=== PATIENT | female | born 1975 | race Caucasian/White ===

== ENCOUNTER 2016-08-08 15:53 | Emergency (ER) | payer MEDICAID | END 2016-08-08 16:52 | disposition left against medical advice (07) | LOC: UCEAST 15:53 | DX: O26.891 Other specified pregnancy related conditions, first trimester (principal); R05 Cough; Z53.21 Procedure and treatment not carried out due to patient leaving prior to being seen by health care provider ==

== ENCOUNTER 2016-12-28 16:36 | Emergency (ER) | payer OTHER ==
[2016-12-28 16:41] VITALS: BP 124/97
[2016-12-28] MEDS ORDERED: Ketorolac INJ* 60 MG/2 ML VIAL IM ONE (17:56)
[2016-12-28] MEDS ORDERED: Ketorolac INJ* 60 MG/2 ML VIAL ONE (17:59)
--- NOTE | 2016-12-29 01:33 | UC ---
Nargis Olsen Edward, scribed for Mikayla Dominguez MD on 12/28/16 at 1753 . Neck Pain HPI - HPI Summary HPI Summary: 41 y/o female presents to ED with neck and back pain. The neck pain is in the last started a week and a half ago and is rated at a 7 out of 10. The neck pain is characterized as a sharp, burning and aching pain that radiates into the head. The back pain started yesterday and is located in her lower L back. Patient states that the neck pain is aggravated when she turns her head to the right, and alleviated when she pushes into a nerve running down the back of her head. 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 Associated sx: PMHx substance abuse (heroin, but on Suboxone now). LNMP 11/29/16. Pt has also felt like her lef t ear is plugged and asks to have it checked. 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 Back pain - yesterday Mechanism Of Injury: No Known Trauma Timing: Constant Onset/Duration: Lasting Weeks Severity: Severe Pain Intensity: 7 Pain Scale Used: 0-10 Numeric Location: Discrete At: - left lower back, right post neck Character: Sharp, Burning Aggravating Factors: Movement - Turning head to the right Alleviating Factors: Message - massage Associated Signs & Symptoms: Positive: Negative - Allergies/Home Medications Allergies/Adverse Reactions: Allergies Allergy/AdvReac Type Severity Reaction Status Date / Time No Known Allergies Allergy Verified 12/28/16 16:40 PMH/Surg Hx/FS Hx/Imm Hx Previously Healthy: No Psychological History: Depression, Post Traumatic Stress Disorder, Other Other Psychological History: Substance abuse (heroin), on suboxone now Other History Of: Hepatitis C - She states that "it has been out of my system for a while." Negative For: HIV, Hepatitis B - Surgical History Surgical History: Yes Surgery Procedure, Year, and Place: C SECTION, LAPAROSCOPY FOR RUPTURED OVARIAN CYST - Family History Known Family History: Positive: Other - Cancer Negative: Renal Disease, Blood Disorder - Social History Alcohol Use: None Alcohol Amount: 1 drink last night Substance Use Type: Heroin - On suboxone now Substance Use Comment - Amount & 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) Smoking Status (MU): Smoker, Current Status Unknown Type: Cigarettes Amount Used/How Often: 1/2 ppd Length of Time of Smoking/Using Tobacco: 15 years Have You Smoked in the Last Year: Yes Household Exposure Type: Cigarettes - Immunization History Most Recent Influenza Vaccination: 2010 Most Recent Tetanus Shot: 2006 Most Recent Pneumonia Vaccination: never Review Of Systems Constitutional: Positive: Negative Skin: Positive: Negative Eyes: Positive: Negative ENT: Positive: Negative Respiratory: Positive: Negative Cardiovascular: Positive: Negative Gastrointestinal: Positive: Negative Genitourinary: Positive: Negative Musculoskeletal: Positive: Arthralgia - R neck and lower L back pain Neurological: Positive: Negative Psychological: Positive: Negative All Other Systems Reviewed And Are Negative: Yes Physical Exam Triage Information Reviewed: Yes Appearance: Well-Appearing, Well-Nourished, Pain Distress - Moderate Vital Signs: Initial Vital Signs Temp 97.3 F 12/28/16 16:40 Pulse 96 12/28/16 16:40 Resp 16 12/28/16 16:40 BP 124/97 12/28/16 16:40 Pulse Ox 95 12/28/16 16:40 Vital Signs Reviewed: Yes Eyes: Positive: Conjunctiva Clear ENT: Positive: Normal ENT inspection, Pharyngeal erythema, TM dull - fluid behind left TM Neck: Positive: Supple, No Lymphadenopathy, Tenderness @ - Right neck Respiratory: Positive: Lungs clear, Normal breath sounds, No respiratory distress Cardiovascular: Positive: RRR, No Murmur, Pulses Normal, Brisk Capillary Refill Abdomen Description: Positive: Nontender, Soft. Negative: Distended, Guarding, McBurney's Point Tenderness, Peritoneal Signs Bowel Sounds: Positive: Present Musculoskeletal: Positive: Strength Intact, ROM Intact, No Edema, Other: - L lumbar paraspinous muscle tenderness Neurological: Positive: Alert, Muscle Tone Normal Psychological Exam: Normal Skin Exam: Normal Neck Pain Course/Dx - Course Course Of Treatment: UA neg (+bilirubin). UCG neg. There is no trauma so no imaging necessary. Pt is on suboxone, so no narcotics. Accepts a shot of toradol with good relief. Will Rx flexeril as a muscle relaxant and advise pt to follow up with PCP, perhaps start physical therapy. Advised she may try mucinex or sudafed for her ear symptoms. - Differential Dx/Diagnosis Differential Dx/HQI/PQRI: Sprain, Strain, Other - Herniated disc, Renal Colic Provider Diagnoses: Lumbosacral strain, Cervical Strain, Elevated BP without hx of HTN, Serous Otitis, Tobacco abuse disorder Discharge - Discharge Plan Condition: Stable Disposition: HOME Prescriptions: Albuterol HFA INHALER* [Ventolin HFA Inhaler*] 2 puff INH Q4H PRN #1 mdi PRN Reason: Sob/Wheezing Cyclobenzaprine TAB* [Flexeril 10 MG TAB*] 10 mg PO TID PRN #20 tab PRN Reason: Pain Patient Education Materials: Cervical Strain (ED), Acute Low Back Pain (ED) Referrals: [facility] [Outside] - 12/30/16 (Call this number to get a primary care provider and have your blood pressure checked again, because it was elevated today, possibly due to your pain. ) The documentation as recorded by the Nargis alcantara Edward accurately reflects the service I personally performed and the decisions made by me, Mikayla Dominguez MD.
== END 2016-12-28 18:35 | disposition home or self-care (01) ==
LOC: UCEAST 16:36
DX: S39.012A Strain of muscle, fascia and tendon of lower back, initial encounter (principal); S16.1XXA Strain of muscle, fascia and tendon at neck level, initial encounter; X58.XXXA Exposure to other specified factors, initial encounter; Y93.9 Activity, unspecified; Y92.9 Unspecified place or not applicable; H65.92 Unspecified nonsuppurative otitis media, left ear; R03.0 Elevated blood-pressure reading, without diagnosis of hypertension; F32.9 Major depressive disorder, single episode, unspecified; Z32.02 Encounter for pregnancy test, result negative; Z72.0 Tobacco use
CPT/HCPCS: 81003; 84702; 96372; 99212; G0463; J1885

== ENCOUNTER 2017-02-17 20:11 | Emergency (ER) | payer OTHER ==
[2017-02-17] MEDS ORDERED: Ondansetron ODT TAB* 4 MG PO ONE (20:17)
[2017-02-17 20:23] VITALS: BP 112/68
--- NOTE | 2017-02-17 20:33 | UC ---
Abdominal Pain Female HPI - HPI Summary HPI Summary: 41 YEAR OLD FEMALE PRESENTS WITH SEVERE NAUSEA/VOMITING. I WILL SEND HER TO THE ER. - History of Current Complaint Chief Complaint: UCAbdominalPain Stated Complaint: ABD COMPLAINT,NAUSEA Time Seen by Provider: 02/17/17 20:16 Hx Last Menstrual Period: DECEMBER 2016 Allergies/Adverse Reactions: Allergies Allergy/AdvReac Type Severity Reaction Status Date / Time No Known Allergies Allergy Verified 02/17/17 20:23 Home Medications: Home Medications Escitalopram (NF) [Lexapro 20 mg (NF)] 20 mg PO DAILY 02/17/17 [History Confirmed 02/17/17] Ondansetron TAB* [Zofran 4 MG Tab*] 4 mg PO PRN 02/17/17 [History] PMH/Surg Hx/FS Hx/Imm Hx Previously Healthy: Yes Other History Of: Hepatitis C - She states that "it has been out of my system for a while." Negative For: HIV, Hepatitis B - Surgical History Surgical History: Yes Surgery Procedure, Year, and Place: C SECTION, LAPAROSCOPY FOR RUPTURED OVARIAN CYST - Family History Known Family History: Positive: None - N/C, Other - Cancer Negative: Renal Disease, Blood Disorder - Social History Alcohol Use: None Alcohol Amount: 1 drink last night Substance Use Type: Heroin, Marijuana Substance Use Comment - Amount & 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) Smoking Status (MU): Former Smoker Type: Cigarettes Amount Used/How Often: 1/2 ppd Length of Time of Smoking/Using Tobacco: 15 years Have You Smoked in the Last Year: Yes Household Exposure Type: Cigarettes - Immunization History Most Recent Influenza Vaccination: 2010 Most Recent Tetanus Shot: 2006 Most Recent Pneumonia Vaccination: never Review of Systems Constitutional: Negative Skin: Negative Eyes: Negative ENT: Negative Respiratory: Negative Cardiovascular: Negative Gastrointestinal: Abdominal Pain, Vomiting, Nausea Genitourinary: Negative Motor: Negative Neurovascular: Negative Musculoskeletal: Negative Neurological: Negative Psychological: Negative All Other Systems Reviewed And Are Negative: Yes Physical Exam Triage Information Reviewed: Yes Vital Signs: Initial Vital Signs Temp 36.7 C 02/17/17 20:14 Pulse 72 02/17/17 20:14 Resp 20 02/17/17 20:14 BP 112/68 02/17/17 20:14 Pulse Ox 94 02/17/17 20:14 Eye Exam: Normal ENT Exam: Normal Dental Exam: Normal Neck exam: Normal Neck: Positive: 1 Respiratory Exam: Normal Cardiovascular Exam: Normal Abdomen Description: Positive: Distended Musculoskeletal Exam: Normal Neurological Exam: Normal Psychological Exam: Normal Skin Exam: Normal Abd Pain Female Course/Dx - Differential Dx/Diagnosis Provider Diagnoses: SEVERE NAUSEA. SEVERE VOMITTING. SEVERE ABDOMINAL PAIN Discharge - Discharge Plan Condition: Critical Disposition: TRANS HIGHER LVL OF CARE FAC
== END 2017-02-17 20:35 | disposition short-term general hospital (02) ==
LOC: UCEAST 20:11
DX: O21.9 Vomiting of pregnancy, unspecified (principal); Z3A.00 Weeks of gestation of pregnancy not specified
CPT/HCPCS: 99213; A9270-GY; G0463

== ENCOUNTER 2017-02-17 20:49 | Emergency (ER) | payer OTHER ==
[2017-02-17] MEDS ORDERED: NS 0.9% 1000 ML* 2,000 ML IV ONE (21:29)
[2017-02-17] MEDS ORDERED: Ondansetron INJ* 2 MG/ML VIAL IV ONE (21:29)
[2017-02-17 21:44] LABS: Hematocrit 40 % (35-47); Hemoglobin 13.5 g/dl (12.0-16.0); Mean Corpuscular HGB Conc 34 g/dl (31-36); Mean Corpuscular Hemoglobin 31 pg (27-31); Mean Corpuscular Volume 92 fL (80-97); Mean Platelet Volume 8 um3 (7.4-10.4); Red Blood Count 4.37 10^6/ul (4.0-5.4); Red Cell Distribution Width 13 % (10.5-15); White Blood Count 13.3 10^3/ul (3.5-10.8)
--- NOTE | 2017-02-17 21:47 | ED ---
Nargis Olsen Edward, scribed for Tarik Brooks MD on 02/17/17 at 2130 . Abdominal Pain/Female - HPI Summary HPI Summary: 41 y/o female BIBA c/o ABD pain and gradual onset, constant N/V for days. ABD pain rated 8/10 in severity at triage. The pt states she finally vomited this morning. She states she is 1 month or two . LNMP December 2017. PMHx anxiety. - History of Current Complaint Chief Complaint: EDAbdPain Stated Complaint: ABD PAIN/SENT FROM [facility] Time Seen by Provider: 02/17/17 21:25 Hx Obtained From: Patient Hx Last Menstrual Period: DECEMBER 2016 Onset/Duration: Gradual Onset, Lasting Days, Still Present Timing: Constant Severity Currently: Severe Pain Intensity: 8 Pain Scale Used: 0-10 Numeric Associated Signs and Symptoms: Positive: Nausea, Vomiting Allergies/Adverse Reactions: Allergies Allergy/AdvReac Type Severity Reaction Status Date / Time [place] Allergy Unknown Unknown Verified 02/17/17 20:45 Reaction Details Penicillins Allergy Unknown Unknown Verified 02/17/17 20:45 Reaction Details Ziprasidone [From Geodon] Allergy Unknown Unknown Verified 02/17/17 20:45 Reaction Details PMH/Surg Hx/FS Hx/Imm Hx Previously Healthy: No Endocrine/Hematology History: Denies: Hx Diabetes, Hx Systemic Lupus Erythematosus, Hx Thyroid Disease Cardiovascular History: Denies: Hx Congestive Heart Failure, Hx Deep Vein Thrombosis, Hx Hypertension , Hx Myocardial Infarction, Hx Pacemaker/ICD Respiratory History: Reports: Hx Asthma, Hx Chronic Obstructive Pulmonary Disease (COPD) Denies: Hx Lung Cancer, Hx Pneumonia, Hx Pulmonary Embolism GI History: Denies: Hx Gall Bladder Disease, Hx Gastrointestinal Bleed, Hx Ulcer, Hx Urosepsis History: Denies: Hx Kidney Stones, Hx Renal Disease Musculoskeletal History: Reports: Hx Back Problems, Hx Scoliosis Sensory History: Reports: Hx Contacts or Glasses Opthamlomology History: Reports: Hx Contacts or Glasses Neurological History: Denies: Hx Dementia, Hx Migraine, Hx Seizures, Hx Transient Ischemic Attacks (TIA), Other Neuro Impairments/Disorders Psychiatric History: Reports: Hx Anxiety, Hx Depression, Hx Panic Disorder, Hx Post Traumatic Stress Disorder, Hx Substance Abuse Denies: Hx Schizophrenia, Hx Bipolar Disorder, Hx Suicide Attempt, Hx of Violent Episodes Against Others - Cancer History Hx Chemotherapy: No - Surgical History Surgery Procedure, Year, and Place: C SECTION, LAPAROSCOPY FOR RUPTURED OVARIAN CYST Infectious Disease History: Yes Infectious Disease History: Reports: Hx Hepatitis - Hepatitis C (STATES TREATED) Denies: Hx Clostridium Difficile, Hx Human Immunodeficiency Virus (HIV), Hx of Known/Suspected MRSA, Hx Shingles, Hx Tuberculosis, Hx Known/Suspected VRE, Hx Known/Suspected VRSA, History Other Infectious Disease, Traveled Outside the [place] in Last 30 Days - Family History Known Family History: Positive: Other - Cancer Negative: Renal Disease, Blood Disorder - Social History Alcohol Use: None Alcohol Amount: 1 drink last night Hx Substance Use: Yes - Pt on suboxone now Substance Use Type: Reports: Heroin, Marijuana Substance Use Comment - Amount & 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) Hx Tobacco Use: Yes Smoking Status (MU): Current Every Day Smoker Type: Cigarettes Amount Used/How Often: 1/2 ppd Length of Time of Smoking/Using Tobacco: 15 years Have You Smoked in the Last Year: Yes Review of Systems Constitutional: Negative Eyes: Negative ENT: Negative Cardiovascular: Negative Respiratory: Negative Positive: Abdominal Pain, Vomiting, Nausea Genitourinary: Negative Musculoskeletal: Negative Skin: Negative Neurological: Negative Psychological: Normal All Other Systems Reviewed And Are Negative: Yes Physical Exam Triage Information Reviewed: Yes Vital Signs On Initial Exam: Initial Vitals Temp Pulse Resp BP Pulse Ox 99.5 F 72 20 112/66 99 02/17/17 21:16 02/17/17 21:16 02/17/17 21:16 02/17/17 21:16 02/17/17 21:16 Vital Signs Reviewed: Yes Appearance: Positive: Well-Appearing, No Pain Distress Skin: Positive: Warm Head/Face: Positive: Normal Head/Face Inspection Eyes: Positive: MAICOL ENT: Positive: Normal ENT inspection Neck: Positive: Supple Respiratory/Lung Sounds: Positive: Clear to Auscultation, Breath Sounds Present Cardiovascular: Positive: RRR Abdomen Description: Positive: Nontender, Soft Bowel Sounds: Positive: Present Musculoskeletal: Positive: Strength/ROM Intact Neurological: Positive: Alert, Oriented to Person Place, Time - [place] Coma Scale Coma Scale Total: 15 Diagnostics - Vital Signs Vital Signs Temp Pulse Resp BP Pulse Ox 02/17/17 21:20 78 112/66 99 02/17/17 21:19 76 100 02/17/17 21:16 99.5 F 72 20 112/66 99 - Laboratory Result Diagrams: 02/17/17 21:30 02/17/17 21:30 Lab Statement: Any lab studies that have been ordered have been reviewed, and results considered in the medical decision making process. Re-Evaluation - Re-Evaluation First Eval Comment: pt comfortably sleeping, tolerating po Abdominal Pain Fem Course/Dx - Course Course Of Treatment: 41 y/o female BIBA c/o ABD pain and gradual onset, constant N/V for days. ABD pain rated 8/10 in severity at triage. The pt states she finally vomited this morning. She states she is 1 month or two . LNMP December 2017. PMHx anxiety. Pt will be d/c home. - Diagnoses Provider Diagnoses: Hyperemesis gravidarum Discharge - Discharge Plan Condition: Stable Disposition: HOME Prescriptions: Ondansetron ODT TAB* [Zofran 4 MG Odt TAB*] 4 mg PO Q6H #10 tab.odt Ondansetron TAB* [Zofran 4 MG Tab*] 4 mg PO Q6H PRN #10 PRN Reason: N/V Patient Education Materials: Hyperemesis Gravidarum (ED) Referrals: [facility] [place] [facility] [Outside] - 3 Days (Please f/u in 2-3 days) The documentation as recorded by the Nargis alcantara Edward accurately reflects the service I personally performed and the decisions made by , Tarik Brooks MD.
[2017-02-17 21:58] LABS: Albumin 4.4 g/dL (3.2-5.2); C Reactive Protein 1.09 mg/L (< 5.00); Calcium 9.5 mg/dL (8.6-10.3); EGFR African American 119.8 (>60); EGFR Non-African American 93.2 (>60); Globulin 2.6 g/dL (2-4); Magnesium 1.7 mg/dL (1.9-2.7); Potassium 3.6 mmol/L (3.5-5.0); Total Bilirubin 0.6 mg/dL (0.2-1.0)
[2017-02-17] MEDS ORDERED: Ondansetron ODT TAB* 4 MG PO ONE (23:00)
[2017-02-17 23:39] VITALS: BP 73/57
== END 2017-02-18 00:01 | disposition home or self-care (01) ==
LOC: ED 20:49
DX: O21.0 Mild hyperemesis gravidarum (principal); R10.9 Unspecified abdominal pain; Z3A.00 Weeks of gestation of pregnancy not specified; F17.210 Nicotine dependence, cigarettes, uncomplicated
CPT/HCPCS: 36415; 80053; 83605; 83690; 83735; 84702; 85025; 86140; 96374; 99283; A9270-GY; J2405

== ENCOUNTER 2017-02-20 08:25 | Emergency (ER) | payer OTHER ==
[2017-02-20] MEDS ORDERED: Ondansetron INJ* 2 MG/ML VIAL IV ONE ×2 (08:50→11:46)
[2017-02-20] MEDS ORDERED: NS 0.9% 1000 ML* 2,000 ML IV ONE (08:50)
[2017-02-20] MEDS ORDERED: Famotidine IV* 10 MG/ML 2 ML (20 mg) IV SLOW PU ONE (08:51)
[2017-02-20 09:00] LABS: Hematocrit 42 % (35-47); Mean Corpuscular HGB Conc 34 g/dl (31-36); Mean Corpuscular Hemoglobin 31 pg (27-31); Mean Corpuscular Volume 91 fL (80-97); Mean Platelet Volume 8 um3 (7.4-10.4); Red Blood Count 4.57 10^6/ul (4.0-5.4); Red Cell Distribution Width 13 % (10.5-15); White Blood Count 10.9 10^3/ul (3.5-10.8)
[2017-02-20 09:20] LABS: Albumin 4.2 g/dL (3.2-5.2); BUN/Creatinine Ratio 20.9 (8-20); Calcium 9.2 mg/dL (8.6-10.3); Globulin 2.7 g/dL (2-4); Potassium 3.7 mmol/L (3.5-5.0); Total Bilirubin 0.5 mg/dL (0.2-1.0); Total Protein 6.9 g/dL (6.4-8.9)
[2017-02-20 10:32] LABS: Urine Bilirubin Negative (Negative); Urine Glucose Negative (Negative); Urine Nitrite Negative (Negative)
[2017-02-20] MEDS ORDERED: NS 0.9% 1000 ML* 1,000 ML IV ONE (11:46)
[2017-02-20 12:13] VITALS: BP 109/72
[2017-02-20 12:14] LABS: Benzodiazepine Urine Screen None Detected (None Detect)
[2017-02-20] MEDS ORDERED: PROCHLORPERAZINE INJ 5 MG/ML 2 ML VIAL IV ONE (12:46)
[2017-02-20] MEDS ORDERED: Pyridoxine TAB* 50 MG PO ONE (12:57)
--- NOTE | 2017-02-21 17:29 | ED ---
Kwame Olsen Thomas, scribed for Valeriy Shafer MD on 02/20/17 at 0833 . GI/ HPI - HPI Summary HPI Summary: The pt is a 41 y/o F who is 6 weeks presenting to the ED c/o vomiting that began three days ago. She cannot hold down even water. She rates her pain level 2/10. The vomiting is aggravated and alleviated by nothing. 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 Pt additionally c/o nausea Pt denies abdominal cramping, vaginal bleeding, and vaginal discharge. PMHx: Hepatitis C, depression, anxiety, suboxone therapy, COPD. PSHx: , ruptured ovarian cyst. SHx: last reported illicit drug use in 2011, smoker, no alcohol use. She was a patient here three days ago with similar complaints and was seen by Dr. Brooks. She reports a generally unpleasant experience. She says that she was discharged home, apparently against her wishes. [facility] . She has not yet seen an OBGYN for this . She reports a miscarriage that occurred earlier this year. G=8, P=5, A=2. - History of Current Complaint Stated Complaint: VOMITING Hx Obtained From: Patient Hx Last Menstrual Period: DECEMBER 2016 Onset/Duration: Started Days Ago - 3, Still Present Timing: Constant Pain Intensity: 2 Associated Signs and Symptoms: Positive: Nausea, Vomiting. Negative: Other: - NEG: abd cramping Additional Signs & Symptoms: Negative: Vaginal Bleeding, Vaginal Discharge Aggravating Factor(s): Nothing Alleviating Factor(s): Nothing - Additional Pertinent History Primary Care Physician: Amy - Allergy/Home Medications Allergies/Adverse Reactions: Allergies Allergy/AdvReac Type Severity Reaction Status Date / Time [facility] Allergy Unknown Unknown Verified 02/20/17 08:27 Reaction Details Penicillins Allergy Unknown Unknown Verified 02/20/17 08:27 Reaction Details Ziprasidone [From Geodon] Allergy Unknown Unknown Verified 02/20/17 08:27 Reaction Details PMH/Surg Hx/FS Hx/Imm Hx Previously Healthy: No Endocrine/Hematology History: Denies: Hx Diabetes, Hx Systemic Lupus Erythematosus, Hx Thyroid Disease Cardiovascular History: Denies: Hx Congestive Heart Failure, Hx Deep Vein Thrombosis, Hx Hypertension , Hx Myocardial Infarction, Hx Pacemaker/ICD Respiratory History: Reports: Hx Asthma, Hx Chronic Obstructive Pulmonary Disease (COPD) Denies: Hx Lung Cancer, Hx Pneumonia, Hx Pulmonary Embolism GI History: Denies: Hx Gall Bladder Disease, Hx Gastrointestinal Bleed, Hx Ulcer, Hx Urosepsis History: Denies: Hx Kidney Stones, Hx Renal Disease Musculoskeletal History: Reports: Hx Back Problems, Hx Scoliosis Sensory History: Reports: Hx Contacts or Glasses Opthamlomology History: Reports: Hx Contacts or Glasses Neurological History: Denies: Hx Dementia, Hx Migraine, Hx Seizures, Hx Transient Ischemic Attacks (TIA), Other Neuro Impairments/Disorders Psychiatric History: Reports: Hx Anxiety, Hx Depression, Hx Panic Disorder, Hx Post Traumatic Stress Disorder, Hx Substance Abuse Denies: Hx Schizophrenia, Hx Bipolar Disorder, Hx Suicide Attempt, Hx of Violent Episodes Against Others - Cancer History Hx Chemotherapy: No - Surgical History Surgery Procedure, Year, and Place: C SECTION, LAPAROSCOPY FOR RUPTURED OVARIAN CYST Infectious Disease History: Reports: Hx Hepatitis - Hepatitis C (STATES TREATED) Denies: Hx Clostridium Difficile, Hx Human Immunodeficiency Virus (HIV), Hx of Known/Suspected MRSA, Hx Shingles, Hx Tuberculosis, Hx Known/Suspected VRE, Hx Known/Suspected VRSA, History Other Infectious Disease, Traveled Outside the [place] in Last 30 Days - Family History Known Family History: Positive: Other - Cancer Negative: Renal Disease, Blood Disorder - Social History Alcohol Use: None Alcohol Amount: 1 drink last night Hx Substance Use: Yes - Pt on suboxone now Substance Use Type: Reports: Heroin, Marijuana Substance Use Comment - Amount & 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 Negative: Other - NEG: abdominal cramping Negative: discharge, other - NEG: vaginal bleeding All Other Systems Reviewed And Are Negative: Yes Physical Exam - Summary Physical Exam Summary: VITAL SIGNS: Reviewed. GENERAL: ~Patient is a well-developed and nourished female who is lying comfortable in the stretcher. ~Patient is not in any acute respiratory distress. HEAD AND FACE: No signs of trauma. ~No ecchymosis, hematomas or skull depressions. No sinus tenderness. EYES: PERRLA, EOMI x 2, No injected conjunctiva, no nystagmus. EARS: Hearing grossly intact. Ear canals and tympanic membranes are within normal limits. MOUTH: Oropharynx within normal limits. NECK: Supple, trachea is midline, no adenopathy, no JVD, no carotid bruit, no c- spine tenderness, neck with full ROM. CHEST: Symmetric, no tenderness at palpation LUNGS: Clear to auscultation bilaterally. No wheezing or crackles. CVS: Regular rate and rhythm, S1 and S2 present, no murmurs or gallops appreciated. ABDOMEN: Soft, non-tender. No signs of distention. No rebound no guarding, and no masses palpated. Bowel sounds are normal. EXTREMITIES: FROM in all major joints, no edema, no cyanosis or clubbing. NEURO: Alert and oriented x 3. No acute neurological deficits. Speech is normal and follows commands. SKIN: Dry and warm Triage Information Reviewed: Yes Vital Signs On Initial Exam: Initial Vitals Temp Pulse Resp BP Pulse Ox 97.7 F 48 20 131/93 95 02/20/17 08:27 02/20/17 08:27 02/20/17 08:27 02/20/17 08:27 02/20/17 08:27 Vital Signs Reviewed: Yes Diagnostics - Vital Signs Vital Signs Temp Pulse Resp BP Pulse Ox 02/20/17 08:27 97.7 F 48 20 131/93 95 - Laboratory Lab Results: Lab Results 02/20/17 02/20/17 02/20/17 Range/Units 08:45 08:45 09:50 WBC 10.9 H (3.5-10.8) 10^3/ul RBC 4.57 (4.0-5.4) 10^6/ul Hgb 14.0 (12.0-16.0) g/dl Hct 42 (35-47) % MCV 91 (80-97) fL MCH 31 (27-31) pg MCHC 34 (31-36) g/dl RDW 13 (10.5-15) % Plt Count 238 (150-450) 10^3/ul MPV 8 (7.4-10.4) um3 Neut % (Auto) 67.9 (38-83) % Lymph % (Auto) 20.8 L (25-47) % Clare % (Auto) 9.9 H (1-9) % Eos % (Auto) 0.5 (0-6) % Baso % (Auto) 0.9 (0-2) % Absolute Neuts (auto) 7.4 (1.5-7.7) 10^3/ul Absolute Lymphs (auto) 2.3 (1.0-4.8) 10^3/ul Absolute Monos (auto) 1.1 H (0-0.8) 10^3/ul Absolute Eos (auto) 0.1 (0-0.6) 10^3/ul Absolute Basos (auto) 0.1 (0-0.2) 10^3/ul Absolute Nucleated RBC 0.01 10^3/ul Nucleated RBC % 0.1 Sodium 132 L (133-145) mmol/L Potassium 3.7 (3.5-5.0) mmol/L Chloride 102 (101-111) mmol/L Carbon Dioxide 23 (22-32) mmol/L Anion Gap 7 (2-11) mmol/L BUN 14 (6-24) mg/dL Creatinine 0.67 (0.51-0.95) mg/dL Est GFR ( Amer) 126.0 (>60) Est GFR (Non-Af Amer) 98.0 (>60) BUN/Creatinine Ratio 20.9 H (8-20) Glucose 108 H (70-100) mg/dL Calcium 9.2 (8.6-10.3) mg/dL Total Bilirubin 0.50 (0.2-1.0) mg/dL AST 16 (13-39) U/L ALT 10 (7-52) U/L Alkaline Phosphatase 28 L (34-104) U/L Total Protein 6.9 (6.4-8.9) g/dL Albumin 4.2 (3.2-5.2) g/dL Globulin 2.7 (2-4) g/dL Albumin/Globulin Ratio 1.6 (1-3) Beta HCG, Quant 142258.00 mIU/mL Urine Color Yellow Urine Appearance Clear Urine pH 7.0 (5-9) Ur Specific [place] 1.005 L (1.010-1.030) Urine Protein Negative (Negative) Urine Ketones 1+ H (Negative) Urine Blood Negative (Negative) Urine Nitrate Negative (Negative) Urine Bilirubin Negative (Negative) Urine Urobilinogen Negative (Negative) Ur Leukocyte Esterase Negative (Negative) Urine Glucose Negative (Negative) Urine Opiates Screen (None Detect) Ur Barbiturates Screen (None Detect) Ur Phencyclidine Scrn (None Detect) Ur Amphetamines Screen (None Detect) U Benzodiazepines Scrn (None Detect) Urine Cocaine Screen (None Detect) U Cannabinoids Screen (None Detect) 02/20/17 Range/Units 11:48 WBC (3.5-10.8) 10^3/ul RBC (4.0-5.4) 10^6/ul Hgb (12.0-16.0) g/dl Hct (35-47) % MCV (80-97) fL MCH (27-31) pg MCHC (31-36) g/dl RDW (10.5-15) % Plt Count (150-450) 10^3/ul MPV (7.4-10.4) um3 Neut % (Auto) (38-83) % Lymph % (Auto) (25-47) % Clare % (Auto) (1-9) % Eos % (Auto) (0-6) % Baso % (Auto) (0-2) % Absolute Neuts (auto) (1.5-7.7) 10^3/ul Absolute Lymphs (auto) (1.0-4.8) 10^3/ul Absolute Monos (auto) (0-0.8) 10^3/ul Absolute Eos (auto) (0-0.6) 10^3/ul Absolute Basos (auto) (0-0.2) 10^3/ul Absolute Nucleated RBC 10^3/ul Nucleated RBC % Sodium (133-145) mmol/L Potassium (3.5-5.0) mmol/L Chloride (101-111) mmol/L Carbon Dioxide (22-32) mmol/L Anion Gap (2-11) mmol/L BUN (6-24) mg/dL Creatinine (0.51-0.95) mg/dL Est GFR ( Amer) (>60) Est GFR (Non-Af Amer) (>60) BUN/Creatinine Ratio (8-20) Glucose (70-100) mg/dL Calcium (8.6-10.3) mg/dL Total Bilirubin (0.2-1.0) mg/dL AST (13-39) U/L ALT (7-52) U/L Alkaline Phosphatase (34-104) U/L Total Protein (6.4-8.9) g/dL Albumin (3.2-5.2) g/dL Globulin (2-4) g/dL Albumin/Globulin Ratio (1-3) Beta HCG, Quant mIU/mL Urine Color Urine Appearance Urine pH (5-9) Ur Specific [place] (1.010-1.030) Urine Protein (Negative) Urine Ketones (Negative) Urine Blood (Negative) Urine Nitrate (Negative) Urine Bilirubin (Negative) Urine Urobilinogen (Negative) Ur Leukocyte Esterase (Negative) Urine Glucose (Negative) Urine Opiates Screen None detected (None Detect) Ur Barbiturates Screen None detected (None Detect) Ur Phencyclidine Scrn None detected (None Detect) Ur Amphetamines Screen None detected (None Detect) U Benzodiazepines Scrn None detected (None Detect) Urine Cocaine Screen None detected (None Detect) U Cannabinoids Screen Presumptive positive H (None Detect) Result Diagrams: 02/20/17 08:45 02/20/17 08:45 Lab Statement: Any lab studies that have been ordered have been reviewed, and results considered in the medical decision making process. Re-Evaluation - Re-Evaluation First Eval Re-Evaluation Time: 12:46 Change: Unchanged Comment: The patient is still vomiting. GIGU Course/Dx - Course Assessment/Plan: The pt is a 41 y/o F who is 6 weeks presenting to the ED c/o vomiting that began three days ago. She cannot hold down even water. She rates her pain level 2/10. The vomiting is aggravated and alleviated by nothing. 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 Pt additionally c/o nausea. Pt denies abdominal cramping, vaginal bleeding, and vaginal discharge. PMHx: Hepatitis C, depression, anxiety, suboxone therapy, COPD. PSHx : , ruptured ovarian cyst. SHx: last reported illicit drug use in 2011 , smoker, no alcohol use. She was a patient here three days ago with similar complaints and was seen by Dr. Brooks. She reports a generally unpleasant experience. She says that she was discharged home, apparently against her wishes. [facility] 12/31/16. She has not yet seen an OBGYN for this . She reports a miscarriage that occurred earlier this year. G=8, P=5, A=2. Test results are without significant abnormality except WBC 10.9, sodium 132, beta HCG 768123. UA is negative for UTI. Urine toxicology is positive for cannabinoids. In the ED course, the patient was given IV fluids, Zofran x2, and Compazine. The patient was also given Vitamin B6. The symptoms of nausea and vomiting have improved. The patient still has some epigastric burning, therefore the patient was given Pepcid. As a result, her symptoms improved. I discussed the case with Dr. Samuels, OBGYN, who recommends that patient will be given medications for Compazine and Vitamin B6. I also advised the patient and her at length to cease their marijuana use. The patient will follow up with Dr. Samuels. She is alert and oriented x3 and is hemodynamically stable. She is able to tolerate PO intake without nausea and vomiting. I discussed all the findings and test results with the patient. Patient was instructed to return to the emergency room immediately if any of the symptoms return or worsens. Plan of care was discussed with the patient and understands and agrees. All questions were answered at patient satisfaction. There were no further complaints or concerns. - Diagnoses Provider Diagnoses: Nausea and vomiting during - Physician Notifications Discussed Care Of Patient With: Kaylyn Samuels Time Discussed With Above Provider: 12:49 Instructed by Provider To: Other - We discussed patient care. She recommends to discharge the patient on Compusyn and Vitamin B6. Discharge - Discharge Plan Condition: Stable Disposition: HOME Prescriptions: Pantoprazole TAB (NF) [Protonix TAB (NF)] 40 mg PO DAILY #30 tab Prochlorperazine TAB* [Compazine Tab*] 10 mg PO Q6H PRN #12 tab PRN Reason: Vomiting Pyridoxine TAB* [Vitamin B6 TAB*] 25 mg PO TID PRN #20 tab PRN Reason: Vomiting Patient Education Materials: Nausea and Vomiting in (ED) Referrals: Kaylyn Samuels MD [Medical Doctor] - 2 Days No Primary Care Phys,NOPCP [Primary Care Provider] - The documentation as recorded by the Kwame alcantara Thomas accurately reflects the service I personally performed and the decisions made by Hollis dyson Walter, MD.
== END 2017-02-20 13:28 | disposition home or self-care (01) ==
LOC: ED 08:25
DX: O21.0 Mild hyperemesis gravidarum (principal); Z3A.01 Less than 8 weeks gestation of pregnancy; Z88.0 Allergy status to penicillin; J44.9 Chronic obstructive pulmonary disease, unspecified; F41.9 Anxiety disorder, unspecified; F32.9 Major depressive disorder, single episode, unspecified; F43.10 Post-traumatic stress disorder, unspecified; F17.210 Nicotine dependence, cigarettes, uncomplicated
CPT/HCPCS: 36415; 80053; 80307; 81003; 84702; 85025; 96361; 96374; 96375; 96376; 99283; A9270-GY; J2405

== ENCOUNTER 2017-02-25 15:40 | Emergency (ER) | payer OTHER ==
[2017-02-25] MEDS ORDERED: PROCHLORPERAZINE INJ 5 MG/ML 2 ML VIAL IM ONE (16:24)
--- NOTE | 2017-02-25 16:33 | ED ---
Francine Olsen Rebecca, scribed for Kirk Garcia MD on 02/25/17 at 1617 . - HPI Summary HPI Summary: Pt is a 41 y/o F who presents to ED c/o N/V. Sx began tonight after running out of her Compazine Rx. Partner reports that she can only go 10 minutes without vomiting. Sx only alleviated by Compazine. Additionally c/o fever, chills and constipation. Denies dysuria. Pt is 8 weeks . Pt has been seen 3 times in the last 8 days for simliar sx, per partner, with the last time being 02/20. 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 - History of Current Complaint Chief Complaint: EDNauseaVomitDiarrh Stated Complaint: N/V Hx Obtained From: Patient, Family/Truck Caterer - Partner Onset/Duration: Still Present Current Severity: None Pain Intensity: 0 Location of Pain: None Aggravating Factors: Nothing Alleviating Factors: Medication - Compazine Associated Signs and Symptoms: Positive: Fever, Nausea, Vomiting. Negative: Urinary Symptoms - Assessment Hx Now: No Hx Hysterectomy: No - Additional Pertinent History Primary Care Physician: Amy - Allergies/Home Medications Allergies/Adverse Reactions: Allergies Allergy/AdvReac Type Severity Reaction Status Date / Time [facility] Allergy Unknown Unknown Verified 02/20/17 08:27 Reaction Details Penicillins Allergy Unknown Unknown Verified 02/20/17 08:27 Reaction Details Ziprasidone [From Geodon] Allergy Unknown Unknown Verified 02/20/17 08:27 Reaction Details PMH/Surg Hx/FS Hx/Imm Hx Endocrine/Hematology History: Denies: Hx Diabetes, Hx Systemic Lupus Erythematosus, Hx Thyroid Disease Cardiovascular History: Denies: Hx Congestive Heart Failure, Hx Deep Vein Thrombosis, Hx Hypertension , Hx Myocardial Infarction, Hx Pacemaker/ICD Respiratory History: Reports: Hx Asthma, Hx Chronic Obstructive Pulmonary Disease (COPD) Denies: Hx Lung Cancer, Hx Pneumonia, Hx Pulmonary Embolism GI History: Denies: Hx Gall Bladder Disease, Hx Gastrointestinal Bleed, Hx Ulcer, Hx Urosepsis History: Denies: Hx Kidney Stones, Hx Renal Disease Musculoskeletal History: Reports: Hx Back Problems, Hx Scoliosis Sensory History: Reports: Hx Contacts or Glasses Opthamlomology History: Reports: Hx Contacts or Glasses Neurological History: Denies: Hx Dementia, Hx Migraine, Hx Seizures, Hx Transient Ischemic Attacks (TIA), Other Neuro Impairments/Disorders Psychiatric History: Reports: Hx Anxiety, Hx Depression, Hx Panic Disorder, Hx Post Traumatic Stress Disorder, Hx Substance Abuse Denies: Hx Schizophrenia, Hx Bipolar Disorder, Hx Suicide Attempt, Hx of Violent Episodes Against Others - Cancer History Hx Chemotherapy: No - Surgical History Surgery Procedure, Year, and Place: C SECTION, LAPAROSCOPY FOR RUPTURED OVARIAN CYST Infectious Disease History: Yes Infectious Disease History: Reports: Hx Hepatitis - Hepatitis C (STATES TREATED) Denies: Hx Clostridium Difficile, Hx Human Immunodeficiency Virus (HIV), Hx of Known/Suspected MRSA, Hx Shingles, Hx Tuberculosis, Hx Known/Suspected VRE, Hx Known/Suspected VRSA, History Other Infectious Disease, Traveled Outside the [place] in Last 30 Days - Family History Known Family History: Positive: Other - Cancer Negative: Renal Disease, Blood Disorder - Social History Alcohol Use: None Alcohol Amount: 1 drink last night Hx Substance Use: Yes - Pt on suboxone now Substance Use Type: Reports: Heroin, Marijuana Substance Use Comment - Amount & 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) Hx Tobacco Use: Yes Smoking Status (MU): Current Every Day Smoker Type: Cigarettes Amount Used/How Often: 1/2 ppd Length of Time of Smoking/Using Tobacco: 15 years Have You Smoked in the Last Year: Yes Review of Systems Positive: Fever, Chills Positive: Vomiting, Nausea, Other - Constipation Negative: dysuria All Other Systems Reviewed And Are Negative: Yes Physical Exam - Summary Physical Exam Summary: General: Mildly ill appearing Skin: warm, color reflects adequate perfusion, dry Head: normal Eyes: EOMI, MACIOL ENT: normal Neck: supple, nontender Respiratory: CTA, breath sounds present Cardiovascular: RRR Abdomen: soft, nontender Bowel: present Musculoskeletal: normal, strength/ROM intact Neurological: normal, sensory/motor intact, A&O x3 Psychological: affect/mood appropriate - Physical Exam Triage Information Reviewed: Yes Diagnostics - Vital Signs Vital Signs Temp Pulse Resp BP Pulse Ox 02/25/17 16:06 97.4 F 81 18 120/75 100 02/25/17 16:01 97.4 F 81 18 120/75 100 - Laboratory Lab Statement: Any lab studies that have been ordered have been reviewed, and results considered in the medical decision making process. Course/Dx - Course Course Of Treatment: PATIENT DENIES SX OF UTI. SHE REQUEST COMPAZINE RX. SHE WILL F/U WITH OBGYN; RETURN IF WORSE. - Diagnoses Provider Diagnoses: Hyperemesis gravidarum Discharge - Discharge Plan Condition: Stable Disposition: HOME Prescriptions: Prochlorperazine TAB* [Compazine Tab*] 10 mg PO Q6H PRN #15 tab PRN Reason: Vomiting Patient Education Materials: Hyperemesis Gravidarum (ED) Referrals: No Primary Care Phys,NOPCP [Primary Care Provider] - Additional Instructions: FOLLOW UP WITH YOUR OBGYN. RETURN TO THE EMERGENCY DEPARTMENT FOR ANY WORSENING OF YOUR CONDITION; PAIN, FEVER, DEHYDRATION, YOU FEEL ILL OR QUESTIONS OR CONCERNS. The documentation as recorded by the Francine alcantara Rebecca accurately reflects the service I personally performed and the decisions made by me, Kirk Garcia MD.
[2017-02-25 16:56] VITALS: BP 118/76
== END 2017-02-25 16:55 | disposition home or self-care (01) ==
LOC: ED 15:40
DX: O21.0 Mild hyperemesis gravidarum (principal); Z3A.08 8 weeks gestation of pregnancy; R50.9 Fever, unspecified; K59.00 Constipation, unspecified
CPT/HCPCS: 96372; 99282; J0780

== ENCOUNTER 2017-02-27 06:44 | Observation (INO) | payer OTHER ==
[2017-02-27] MEDS ORDERED: NS 0.9% 1000 ML* 2,000 ML IV ONE (07:29)
[2017-02-27] MEDS ORDERED: PROCHLORPERAZINE INJ 5 MG/ML 2 ML VIAL IV ONE (07:32)
[2017-02-27 07:59] LABS: Hematocrit 40 % (35-47); Hemoglobin 13.4 g/dl (12.0-16.0); Mean Corpuscular HGB Conc 34 g/dl (31-36); Mean Corpuscular Hemoglobin 31 pg (27-31); Mean Corpuscular Volume 91 fL (80-97); Mean Platelet Volume 8 um3 (7.4-10.4); Red Blood Count 4.35 10^6/ul (4.0-5.4); Red Cell Distribution Width 13 % (10.5-15); White Blood Count 9.9 10^3/ul (3.5-10.8)
[2017-02-27 08:14] LABS: Albumin 4.5 g/dL (3.2-5.2); BUN/Creatinine Ratio 21.9 (8-20); EGFR African American 132.9 (>60); EGFR Non-African American 103.3 (>60); Globulin 2.4 g/dL (2-4); Potassium 3.4 mmol/L (3.5-5.0); Total Bilirubin 0.6 mg/dL (0.2-1.0); Total Protein 6.9 g/dL (6.4-8.9)
[2017-02-27 08:56] LABS: Urine Bilirubin Negative (Negative); Urine Glucose Negative (Negative); Urine Nitrite Negative (Negative)
[2017-02-27] MEDS ORDERED: Potassium Chlor TAB* 20 MEQ TAB.ER PO ONE (09:06)
[2017-02-27] MEDS ORDERED: diPHENhydraMINE IV* 50 MG/ML 1 ml VIAL (BENADRYL) IV ONE (09:08)
--- NOTE | 2017-02-27 09:58 | RAD ---
INDICATION: Possible early . Confirm intrauterine COMPARISON: None TECHNIQUE: Transabdominal imaging was performed FINDINGS: There is a single intrauterine gestation with yolk sac and cardiac activity. The heart rate is documented at 155 beats for minute. The crown-rump length corresponds to a 7 week 5 day gestation which is believed to be more accurate than the sac size measurement. There is a subchorionic bleed measuring 1.4 x 0.9 x 0.5 cm. The right ovary measures 2.7 x 2.7 x 2.8 cm on the left 2.7 x 1.6 x 1.9 cm. There is a 2.4 cm right ovarian cyst IMPRESSION: INTRAUTERINE GESTATION AT 7 WEEKS 5 DAYS BASED ON CROWN-RUMP LENGTH. CARDIAC ACTIVITY IS CONFIRMED. MODERATE-SIZED SUBCHORIONIC HEMORRHAGE. SUGGEST FOLLOW-UP
[2017-02-27] MEDS ORDERED: KCL 20 MEQ/100 ML IVPREMIX* 20 MEQ/100 ML BAG IV ONE (10:09)
[2017-02-27] MEDS ORDERED: diPHENhydraMINE IV* 50 MG in NS 0.9% 50 ML* 50 ML IVPB PRN (11:04)
--- NOTE | 2017-02-27 11:04 | ED ---
Nargis Olsen Edward, scribed for Valeriy Garcia MD on 02/27/17 at 0711 . Complex/Multi-Sys Presentation - HPI Summary HPI Summary: 41 y/o female presents to ED c/o N/V for the past three or four days. Associated sx: constipation and diarrhea. The pt reports being 8 weeks . PMHx anxiety and depression. Past medications reviewed on visit. SHx C -section (1997). No relevant FHx. NKDA. Pt lives in a longterm. - History Of Current Complaint Chief Complaint: EDNauseaVomitDiarrh Hx Obtained From: Patient Onset/Duration: Lasting Days Timing: Intermittent, Lasting: Associated Signs And Symptoms: Positive: Nausea, Vomiting, Diarrhea, Other - Constipation - Allergies/Home Medications Allergies/Adverse Reactions: Allergies Allergy/AdvReac Type Severity Reaction Status Date / Time [place] Allergy Unknown Unknown Verified 02/20/17 08:27 Reaction Details Penicillins Allergy Unknown Unknown Verified 02/20/17 08:27 Reaction Details Ziprasidone [From Geodon] Allergy Unknown Unknown Verified 02/20/17 08:27 Reaction Details PMH/Surg Hx/FS Hx/Imm Hx Previously Healthy: No Endocrine/Hematology History: Denies: Hx Diabetes, Hx Systemic Lupus Erythematosus, Hx Thyroid Disease Cardiovascular History: Denies: Hx Congestive Heart Failure, Hx Deep Vein Thrombosis, Hx Hypertension , Hx Myocardial Infarction, Hx Pacemaker/ICD Respiratory History: Reports: Hx Asthma, Hx Chronic Obstructive Pulmonary Disease (COPD) Denies: Hx Lung Cancer, Hx Pneumonia, Hx Pulmonary Embolism GI History: Denies: Hx Gall Bladder Disease, Hx Gastrointestinal Bleed, Hx Ulcer, Hx Urosepsis History: Denies: Hx Kidney Stones, Hx Renal Disease Musculoskeletal History: Reports: Hx Back Problems, Hx Scoliosis Sensory History: Reports: Hx Contacts or Glasses Opthamlomology History: Reports: Hx Contacts or Glasses Neurological History: Denies: Hx Dementia, Hx Migraine, Hx Seizures, Hx Transient Ischemic Attacks (TIA), Other Neuro Impairments/Disorders Psychiatric History: Reports: Hx Anxiety, Hx Depression, Hx Panic Disorder, Hx Post Traumatic Stress Disorder, Hx Substance Abuse Denies: Hx Schizophrenia, Hx Bipolar Disorder, Hx Suicide Attempt, Hx of Violent Episodes Against Others - Cancer History Hx Chemotherapy: No - Surgical History Surgery Procedure, Year, and Place: C SECTION, LAPAROSCOPY FOR RUPTURED OVARIAN CYST Infectious Disease History: Reports: Hx Hepatitis - Hepatitis C (STATES TREATED) Denies: Hx Clostridium Difficile, Hx Human Immunodeficiency Virus (HIV), Hx of Known/Suspected MRSA, Hx Shingles, Hx Tuberculosis, Hx Known/Suspected VRE, Hx Known/Suspected VRSA, History Other Infectious Disease, Traveled Outside the [place] in Last 30 Days - Family History Known Family History: Positive: Other - Cancer Negative: Renal Disease, Blood Disorder - Social History Occupation: Unemployed Lives: Long Term Alcohol Use: None Alcohol Amount: 1 drink last night Hx Substance Use: Yes - Pt on suboxone now Substance Use Type: Reports: Heroin, Marijuana Substance Use Comment - Amount & 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) Hx Tobacco Use: Yes Smoking Status (MU): Current Every Day Smoker Type: Cigarettes Amount Used/How Often: 1/2 ppd Length of Time of Smoking/Using Tobacco: 15 years Have You Smoked in the Last Year: Yes Review of Systems Constitutional: Negative Eyes: Negative ENT: Negative Cardiovascular: Negative Respiratory: Negative Positive: Vomiting, Diarrhea, Nausea, Other - Constipation Genitourinary: Negative Musculoskeletal: Negative Skin: Negative Neurological: Negative Psychological: Normal All Other Systems Reviewed And Are Negative: Yes Physical Exam Triage Information Reviewed: Yes Vital Signs On Initial Exam: Initial Vitals Temp Pulse Resp BP Pulse Ox 98.0 F 90 24 99/72 96 02/27/17 06:49 02/27/17 06:49 02/27/17 06:49 02/27/17 06:49 02/27/17 06:49 Vital Signs Reviewed: Yes Appearance: Positive: No Pain Distress Skin: Positive: Warm, Skin Color Reflects Adequate Perfusion Head/Face: Positive: Normal Head/Face Inspection ENT: Positive: Pharynx normal Neck: Positive: Supple. Negative: Nuchal Rigidity Respiratory/Lung Sounds: Positive: Clear to Auscultation, Breath Sounds Present Cardiovascular: Positive: RRR. Negative: Murmur Abdomen Description: Positive: Nontender Musculoskeletal: Positive: Strength/ROM Intact Neurological: Positive: Sensory/Motor Intact, Alert, Oriented to Person Place, Time, CN Intact II-III Psychiatric: Positive: Anxious Diagnostics - Vital Signs Vital Signs Temp Pulse Resp BP Pulse Ox 02/27/17 06:49 98.0 F 90 24 99/72 96 - Laboratory Result Diagrams: 02/27/17 07:49 02/27/17 07:49 Lab Statement: Any lab studies that have been ordered have been reviewed, and results considered in the medical decision making process. - Ultrasound No standard instances Ultrasound Interpretation: Positive (See Comments) - US - INTRAUTERINE GESTATION AT 7 WEEKS 5 DAYS BASED ON CROWN-RUMP LENGTH. CARDIAC ACTIVITY IS CONFIRMED. MODERATE-SIZED SUBCHORIONIC HEMORRHAGE. SUGGEST FOLLOW-UP Ultrasound Interpretation Completed By: Radiologist Re-Evaluation - Re-Evaluation 1 Re-Evaluation Time: 10:55 Complex Multi-Symp Course/Dx Course Of Treatment: 41 yr old on suboxone, and vomiting for a week with . Her k is low, sodium low. She is still vomiting despite meds, and some hydration. CDU to hospitalist service. - Diagnoses Provider Diagnoses: Hyperemesis, , Subchorionic bleed Discharge - Discharge Plan Condition: Good Disposition: ADMITTED TO [facility] The documentation as recorded by the Nargis alcantara Edward accurately reflects the service I personally performed and the decisions made by , Valeriy aGrcia MD.
[2017-02-27] MEDS: Metoclopramide IV* 5 MG/ML 2 ML VIAL IV SLOW PU PRN ×2 (11:37→19:30)
[2017-02-27] MEDS ORDERED: NS 0.9% w/ 40 Meq KCL 1000 ML* 1,000 ML IV SCH (12:00)
[2017-02-27] MEDS ORDERED: Albuterol HFA INHALER* 8 gm MDI INH PRN (12:22)
[2017-02-27] MEDS: Pyridoxine TAB* 50 MG PO SCH ×2 (13:28→19:41)
--- NOTE | 2017-02-27 15:21 | CONSULT ---
Consult Consult: 41 yo admitted for intractable nausea and vomiting and dehydration in and opiod withdrawal Consulted by hospitalist service to assist with medication selection and rx of nausea and vomiting D/w hospitalist and pt interviewed . pt has not taken suboxone in 2 days per patient and is withdrawing Recommend That she not be withdrawn but start subutex maintenance starting at 8 mg today as this drug is standard maintenance therapy in . I would welcome someone's opinion with more experience with patients transition from one to the other. For the nausea and vomiting you may use doxylamine 10 mg po tid or hydroxyzine 50 mg po qid. If iv is required in the short run you may use ondonsetron iv. As we are not trying to withdraw pt ,I would use the clonidine only as necessary . Pt may stay on her lexapro for now Please contact me for further questions but she will need to continue in a maintenance program throughout her . Chidi Giles MD [phone]
[2017-02-27] MEDS: Ondansetron INJ* 2 MG/ML VIAL IV PRN ×2 (16:10→22:00)
[2017-02-27 17:58] LABS: Magnesium 1.9 mg/dL (1.9-2.7)
[2017-02-27] MEDS: hydrOXYzine HCL TAB* 25 MG PO PRN (18:05)
--- NOTE | 2017-02-27 23:11 | HP ---
CC: Pablo CALF SKINNER * HISTORY AND PHYSICAL: DATE OF ADMISSION: 02/27/17 PRIMARY CARE PROVIDER: None. ATTENDING PHYSICIAN: Dr. Dot Arriola * (dictated by Norma Jose NP). CHIEF COMPLAINT: Intractable nausea and vomiting, and 8 weeks . HISTORY OF PRESENT ILLNESS: Ms. Cuevas is a 41-year-old female with past medical history significant for hepatitis C (treated), who is approximately 8 weeks , who reports intractable nausea and vomiting. The patient has been seen on 02/17/17 at Urgent Care and in the emergency room on 02/20/17 and 02/25/17 with complaints of severe nausea and vomiting. The patient has been prescribed vitamin B6 and Benadryl. She stated that she was unable to keep that down to see if that assisted with her nausea. The patient also had been prescribed Compazine and was also unable to keep that down to help with her vomiting. The patient reports being started on Protonix and she has not been able to keep that down. The patient is a recovering heroin addict and reports no heroin use since 2011. The patient is on Suboxone therapy for her addiction. The patient denies any alcohol use. She does report smoking marijuana and she feels that this may be helping her symptoms some. Due to the patient's continued nausea and vomiting, she presented to the emergency room for further evaluation. While in the emergency room, the patient received Benadryl, potassium supplements, Compazine, and normal saline. She had labs drawn. They were significant for hypokalemia with a potassium at 3.4. She had urinalysis that was negative. She also had a ultrasound showing an approximately 7-week, 5-day old fetus and a moderate-sized subchorionic hemorrhage. The patient denied any vaginal bleeding. She denied any fever. She reports chills. Denies any chest pain, shortness of breath. She also reports constipation. Due to the patient's persistent vomiting and nausea, the Hospitalists were asked to evaluate the patient for admission. PAST MEDICAL HISTORY: 1. Hepatitis C, status post treatment. 2. Heroin abuse. 3. Tobacco abuse. PAST SURGICAL HISTORY: Status post section. HOME MEDICATIONS: Include: 1. Clonidine 0.2 mg oral 3 times daily, the patient also takes 1 tab and 2 tabs. 2. Vitamin B6 25 mg oral 3 times daily as needed for nausea. 3. Compazine 10 mg oral every 6 hours as needed for nausea. 4. Protonix 40 mg oral daily. 5. Zofran 4 mg oral every 6 hours as needed for nausea. 6. Lexapro, the patient is prescribed 20 mg daily, but she has decreased herself down to 10 mg daily. 7. Suboxone 8 mg sublingual daily. 8. Albuterol HFA 2 puffs inhalation every 4 hours as needed for shortness of breath or wheeze. ALLERGIES: The patient reports no known allergies. FAMILY HISTORY: The patient denies any family history of coronary artery disease and diabetes mellitus. The patient reports a family history of cancer, but she is unclear of the details. SOCIAL HISTORY: The patient reports being a former smoker, although she has still been smoking. She states that she has only not been smoking since she has not been feeling very well. She typically smokes a half a pack a day and has smoked for the last 15 years. The patient has no recreational drug use. The patient admits to marijuana use at this time. The patient denied alcohol use. The patient's mother, Ambreen Horne, will be her surrogate maker in the event she is unable to make decisions for herself. REVIEW OF SYSTEMS: I performed a 14-point review of systems. All the pertinent positives and negatives are mentioned in the history of present illness. The remaining review of systems are negative. PHYSICAL EXAMINATION GENERAL APPEARANCE: The patient is alert, pleasant, appears to be in no acute distress. VITAL SIGNS: 99.8, heart rate 82, respiratory rate 18, O2 sat 99% on room air, blood pressure 104/57. HEENT: Normocephalic, atraumatic. Pupils are equal and reactive to light. Extraocular movements are intact. RESPIRATORY: There is no accessory muscle use. The lungs have few scattered rhonchi throughout that clear with a cough. CARDIOVASCULAR: Regular rate and rhythm. S1, S2 present. There are no murmurs , rubs or gallops heard. ABDOMEN: Soft, nontender, nondistended. There are bowel sounds present x4. EXTREMITIES: There is no lower extremity edema. DP and PT pulses are 2+ and symmetric. MUSCULOSKELETAL: There is no clubbing or cyanosis noted. The patient exhibits good strength in all extremities. NEUROLOGIC: The patient is alert and oriented x4. Cranial nerves II through XII are grossly intact. PSYCHOLOGICAL: The patient is calm and cooperative. SKIN: There are no rashes or abnormalities seen. DIAGNOSTIC STUDIES/LAB DATA: Sodium 126, potassium 3.4, chloride 96, CO2 23, BUN 14, creatinine 0.64, glucose 129. White blood cell count 9.9, hemoglobin 13.4, hematocrit 40, and platelet count 251. Urinalysis is negative. ultrasound from today. Radiologist's impression: Intrauterine gestation at 7 weeks 5 days based on crown-rump length. cardiac activity is confirmed. Moderate-sized subchorionic hemorrhage suggest followup. IMPRESSION: Ms. Cuevas is a 41-year-old female with past medical history significant for hepatitis C, which she received treatment for, history of heroin abuse, who presents to the emergency room with complaints of intractable nausea and vomiting. She will be admitted as an observation for intractable nausea and vomiting. ASSESSMENT/PLAN: 1. Intractable nausea and vomiting in a woman approximately 8 weeks gestation. OB has been asked to consult on the patient to assist with medication management and the safety of other medications she is on. The patient will be placed on Reglan and Zofran as needed. We will also continue the vitamin B6 and Benadryl as needed for nausea. The patient will receive IV hydration. 2. Hypokalemia. I suspect this is secondary to the patient's vomiting. She will receive electrolyte replacement and we will recheck her labs in the morning. I also will check a magnesium. If this too is low, I will give her magnesium replacement. 3. History of heroin abuse. The patient was on Suboxone outpatient. We are going to transition her over to Subutex per CALF SKINNER's recommendation. 4. Anxiety and depression. We are going to hold the patient's clonidine. She will be continued on her Lexapro at the current 10 mg dosing that she is taking. She needs to be on her antidepressant at this time. 5. Fluids, electrolytes, and nutrition. We will start the patient NPO. If she is able to not vomit for little while, we will transition her to clear liquids to start with. 6. Code status. Full code. 7. DVT prophylaxis. The patient is at a moderate risk. We will have ENOC stockings in place for her. 8. Disposition. Observation. TIME SPENT: Time for this admission was approximately 60 minutes; greater than half that was spent [id number] with the patient discussing medications, past medical history, events leading up to arrival today, performing a physical examination. Case has been reviewed with the attending, Dr. Arriola, who agrees with the plan of care. Reviewed by VALERIE VILLELA 03/01/17 1129 [id number]/[facility] #: [id number] MTDD
[2017-02-28] MEDS: hydrOXYzine HCL TAB* 25 MG PO PRN ×2 (00:54→05:49)
[2017-02-28] MEDS: Metoclopramide IV* 5 MG/ML 2 ML VIAL IV SLOW PU PRN (03:02)
[2017-02-28] MEDS: Ondansetron INJ* 2 MG/ML VIAL IV PRN ×2 (03:54→12:08)
[2017-02-28] MEDS: Pyridoxine TAB* 50 MG PO SCH ×2 (05:03→11:59)
[2017-02-28 06:23] LABS: BUN/Creatinine Ratio 7.8 (8-20); Calcium 8.1 mg/dL (8.6-10.3); EGFR African American 172.7 (>60); EGFR Non-African American 134.3 (>60); Potassium 3.5 mmol/L (3.5-5.0)
[2017-02-28] MEDS ORDERED: diPHENhydraMINE IV* 50 MG/ML 1 ml VIAL (BENADRYL) ONE (07:16)
[2017-02-28 07:54] VITALS: BP 106/56
[2017-02-28] MEDS ORDERED: Buprenorphine/Naloxone 8-2 MG SL TAB* 1 TAB SL SCH (09:00)
[2017-02-28] MEDS ORDERED: Buprenorphine TAB* 8 MG PO SCH (09:00)
--- NOTE | 2017-02-28 11:17 | DCNOTE ---
Patient seen this morning. Feeling much improved, no N/V since yesterday. Feels she will be able to manage at home, anxious to leave. On exam, RRR, s1 and s2 present, no m/g/r, abd soft, NTND, BS+, no LE edema Will plan to discharge today on continue oral anti-emetics. Requesting zofran ODT. She will contact Dr. Rojo and transition to Subutex from Suboxone. Has upcoming [facility] [employer] appt.
--- NOTE | 2017-03-01 03:46 | DS ---
CC: [facility]; Dr. Rojo * DISCHARGE SUMMARY: DATE OF ADMISSION: 02/27/17 DATE OF DISCHARGE: 02/28/17 Patient is seen through [facility]. PRINCIPAL DISCHARGE DIAGNOSIS: Hyperemesis gravidarum. SECONDARY DIAGNOSES: 1. History of heroin abuse, on Suboxone. 2. Hepatitis C, status post treatment. 3. Tobacco abuse. DISCHARGE MEDICATION REGIMEN: 1. Subutex 8 mg by mouth daily. 2. Zofran 4 mg ODT by mouth every 6 hours as needed for nausea. 3. Compazine 10 mg by mouth every 6 hours as needed for nausea. 4. Vitamin B6, 25 mg by mouth 3 times daily. 5. Clonidine 0.2 mg by mouth 3 times daily. 6. Lexapro 10 mg by mouth daily. 7. Protonix 40 mg by mouth daily. 8. Albuterol 2 puffs inhaled every 4 hours as needed for shortness of breath or wheezing. CONSULTANTS DURING HOSPITALIZATION: Dr. Quinton Giles, TECHNICAL SALES SPECIALIST. HISTORY OF PRESENT ILLNESS AND HOSPITAL SUMMARY: Please see the full history and physical by Norma Giraldo for full details. Briefly, Ms. Cuevas is a 41- year-old female who was 8 weeks who presented to the hospital with intractable nausea and vomiting. There was an attempt to manage her symptoms as an outpatient, however, this did not seem to be successful. She presented to the hospital with some hyponatremia and persistent nausea and vomiting. She was given IV fluids and IV antiemetics. It was noted that the patient was on Suboxone as an outpatient. Usually during , the patients are transitioned to Subutex. This was discussed with the patient and Dr. Giles, and she was transitioned to Subutex here in the hospital. The patient's symptoms improved with fluids and antiemetics. She was able to tolerate p.o. and symptoms were managed with oral antiemetics. She will be discharged home with prescriptions for these and the patient is worked out with Dr. Rojo's office to be transitioned to Subutex as an outpatient, as I am unable to prescribe this. Patient was discharged and will need to keep her followup appointment with [facility]. TIME SPENT: Total time spent on this discharge, 45 minutes. This is a summary of the hospitalization. Please see the full medical record for further details. [id number]/[facility] #: [id number] MTDD
== END 2017-02-28 13:10 | disposition home or self-care (01) ==
LOC: ED 06:44 → MEDTELE 10:59 → MED 12:05
PROVIDERS: ADMIT Internal Medicine; ATTEND Hospitalist
DX: O21.1 Hyperemesis gravidarum with metabolic disturbance (principal); E87.1 Hypo-osmolality and hyponatremia; E86.0 Dehydration; B19.20 Unspecified viral hepatitis C without hepatic coma; F17.210 Nicotine dependence, cigarettes, uncomplicated; F41.8 Other specified anxiety disorders
CPT/HCPCS: 36415; 76815; 80048; 80053; 81003; 83605; 83690; 83735; 84702; 85025; 86850; 86900; 86901; 96361; 96365; 96375; 96376; 99283; A9270-GY; G0378; J0780; J1200; J2405; J2765; J3480

== ENCOUNTER 2017-03-14 12:55 | Emergency (ER) | payer OTHER ==
[2017-03-14 13:01] VITALS: BP 111/71
== END 2017-03-14 14:20 | disposition left against medical advice (07) ==
LOC: ED 12:55
DX: Z34.91 Encounter for supervision of normal pregnancy, unspecified, first trimester (principal); R11.10 Vomiting, unspecified; Z53.21 Procedure and treatment not carried out due to patient leaving prior to being seen by health care provider

== ENCOUNTER 2017-03-15 08:07 | Emergency (ER) | payer OTHER ==
[~2017-03-15 08:07] MED LIST: Ondansetron ODT TAB* 4 MG PO SCH
[2017-03-15] MEDS ORDERED: NS 0.9% 1000 ML* 2,000 ML IV ONE (08:36)
[2017-03-15] MEDS ORDERED: Ondansetron INJ* 2 MG/ML VIAL IV ONE ×2 (08:48→13:06)
[2017-03-15] MEDS ORDERED: diPHENhydraMINE IV* 50 MG/ML 1 ml VIAL (BENADRYL) IV ONE (08:49)
[2017-03-15] MEDS ORDERED: Famotidine IV* 10 MG/ML 2 ML (20 mg) IV SLOW PU ONE ×2 (09:03→13:06)
[2017-03-15 09:08] LABS: Hematocrit 37 % (35-47); Mean Corpuscular HGB Conc 35 g/dl (31-36); Mean Corpuscular Hemoglobin 32 pg (27-31); Mean Corpuscular Volume 90 fL (80-97); Mean Platelet Volume 7 um3 (7.4-10.4); Red Blood Count 4.12 10^6/ul (4.0-5.4); Red Cell Distribution Width 13 % (10.5-15); White Blood Count 9.7 10^3/ul (3.5-10.8)
[2017-03-15 09:23] LABS: ALT 11 U/L (7-52); Albumin 4.2 g/dL (3.2-5.2); Alkaline Phosphatase 22 U/L (34-104); BUN/Creatinine Ratio 22.6 (8-20); Blood Urea Nitrogen 12 mg/dL (6-24); CO2 Carbon Dioxide 22 mmol/L (22-32); Calcium 9.7 mg/dL (8.6-10.3); Chloride 96 mmol/L (101-111); EGFR African American 165.2 (>60); EGFR Non-African American 128.4 (>60); Globulin 2.6 g/dL (2-4); Glucose 96 mg/dL (70-100); Lipase 13 U/L (11.0-82.0); Sodium 128 mmol/L (133-145); Total Protein 6.8 g/dL (6.4-8.9)
--- NOTE | 2017-03-15 09:35 | ED ---
- HPI Summary HPI Summary: 41F at 11 weeks LMP 01/01/17 presents with nausea and vomiting for 2 days. She has been seen in the ED multiple times for this compliant and the last time she was admitted. She is still taking the subtex. She stopped all of her psych meds including the lexapro. She states she can not hold anything down. She has a burning pain in her esophagus. She takes zofran every 8 hours, compazine every 6 hours, b6. She states only thing that works is zofran as it dissolved under the tongue. She denies any vaginal bleeding, cramping or discharge. She denies any dysuria. She denies any chest pain, SOB, cough, fever. - History of Current Complaint Chief Complaint: EDNauseaVomitDiarrh Stated Complaint: NAUSEA/VOMITING Time Seen by Provider: 03/15/17 08:35 Pain Intensity: 0 - Assessment Hx Now: No Hx Hysterectomy: No - Additional Pertinent History Primary Care Physician: [id number] - Allergies/Home Medications Allergies/Adverse Reactions: Allergies Allergy/AdvReac Type Severity Reaction Status Date / Time No Known Allergies Allergy Verified 02/27/17 12:29 PMH/Surg Hx/FS Hx/Imm Hx Endocrine/Hematology History: Reports: Hx Anemia Denies: Hx Diabetes, Hx Systemic Lupus Erythematosus, Hx Thyroid Disease Cardiovascular History: Reports: Hx Syncope Denies: Hx Congestive Heart Failure, Hx Deep Vein Thrombosis, Hx Hypertension , Hx Myocardial Infarction, Hx Pacemaker/ICD Respiratory History: Reports: Hx Asthma, Hx Chronic Obstructive Pulmonary Disease (COPD) - possible Denies: Hx Lung Cancer, Hx Pneumonia, Hx Pulmonary Embolism GI History: Denies: Hx Gall Bladder Disease, Hx Gastroesophageal Reflux Disease, Hx Gastrointestinal Bleed, Hx Ulcer, Hx Urosepsis History: Reports: Hx Kidney Stones Denies: Hx Renal Disease Musculoskeletal History: Reports: Hx Back Problems, Hx Scoliosis Sensory History: Reports: Hx Contacts or Glasses, Hx Hearing Aid Comment Only: Hx Hearing Problem - 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, has hearing aid Opthamlomology History: Reports: Hx Contacts or Glasses Neurological History: Reports: Hx Headaches Denies: Hx Dementia, Hx Migraine, Hx Seizures, Hx Transient Ischemic Attacks (TIA), Other Neuro Impairments/Disorders Psychiatric History: Reports: Hx Anxiety, Hx Depression, Hx Panic Disorder, Hx Post Traumatic Stress Disorder, Hx Substance Abuse Denies: Hx Schizophrenia, Hx Bipolar Disorder, Hx Suicide Attempt, Hx of Violent Episodes Against Others - Cancer History Hx Chemotherapy: No - Surgical History Surgery Procedure, Year, and Place: C SECTION, LAPAROSCOPY FOR RUPTURED OVARIAN CYST Infectious Disease History: No Infectious Disease History: Reports: Hx Hepatitis - Hepatitis C (STATES TREATED) Denies: Hx Clostridium Difficile, Hx Human Immunodeficiency Virus (HIV), Hx of Known/Suspected MRSA, Hx Shingles, Hx Tuberculosis, Hx Known/Suspected VRE, Hx Known/Suspected VRSA, History Other Infectious Disease, Traveled Outside the [place] in Last 30 Days - Family History Known Family History: Positive: None - N/C, Other - Cancer Negative: Renal Disease, Blood Disorder - Social History Alcohol Use: Rare Alcohol Amount: rare during the past year Hx Substance Use: Yes - Pt on suboxone now Substance Use Type: Reports: Marijuana Substance Use Comment - Amount & 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) Hx Tobacco Use: Yes Smoking Status (MU): Light Every Day Tobacco Smoker Type: Cigarettes Amount Used/How Often: 1/2 ppd Length of Time of Smoking/Using Tobacco: 15 years Have You Smoked in the Last Year: Yes Review of Systems Negative: Fever Negative: Chest Pain Negative: Shortness Of Breath Positive: Abdominal Pain - LUQ, Vomiting, Nausea All Other Systems Reviewed And Are Negative: Yes Physical Exam - Physical Exam Triage Information Reviewed: Yes Vital Signs Reviewed: Yes Appearance: Positive: Pain Distress Skin: Positive: Warm, Dry Head/Face: Positive: Normal Head/Face Inspection Eyes: Positive: Normal, EOMI, MAICOL, Conjunctiva Clear ENT: Positive: Normal ENT inspection, Pharynx normal, TMs normal Respiratory/Lung Sounds: Positive: Clear to Auscultation, Breath Sounds Present Cardiovascular: Positive: Normal, RRR Abdomen Description: Positive: Soft, Other: - tender in LUQ Bowel Sounds: Positive: Present Diagnostics - Vital Signs Vital Signs Temp Pulse Resp BP Pulse Ox 03/15/17 09:08 73 100 03/15/17 09:07 105/57 03/15/17 08:59 97.1 F 85 20 128/71 99 03/15/17 08:09 98.4 F 73 20 104/71 98 - Laboratory Lab Results: Lab Results 03/15/17 03/15/17 Range/Units 08:50 08:50 WBC 9.7 (3.5-10.8) 10^3/ul RBC 4.12 (4.0-5.4) 10^6/ul Hgb 13.0 (12.0-16.0) g/dl Hct 37 (35-47) % MCV 90 (80-97) fL MCH 32 H (27-31) pg MCHC 35 (31-36) g/dl RDW 13 (10.5-15) % Plt Count 272 (150-450) 10^3/ul MPV 7 L (7.4-10.4) um3 Neut % (Auto) 75.2 (38-83) % Lymph % (Auto) 15.3 L (25-47) % Parke % (Auto) 9.0 (1-9) % Eos % (Auto) 0.1 (0-6) % Baso % (Auto) 0.4 (0-2) % Absolute Neuts (auto) 7.3 (1.5-7.7) 10^3/ul Absolute Lymphs (auto) 1.5 (1.0-4.8) 10^3/ul Absolute Monos (auto) 0.9 H (0-0.8) 10^3/ul Absolute Eos (auto) 0 (0-0.6) 10^3/ul Absolute Basos (auto) 0 (0-0.2) 10^3/ul Absolute Nucleated RBC 0 10^3/ul Nucleated RBC % 0 Sodium 128 L (133-145) mmol/L Potassium Pending Chloride 96 L (101-111) mmol/L Carbon Dioxide 22 (22-32) mmol/L Anion Gap Pending BUN 12 (6-24) mg/dL Creatinine 0.53 (0.51-0.95) mg/dL Est GFR ( Amer) 165.2 (>60) Est GFR (Non-Af Amer) 128.4 (>60) BUN/Creatinine Ratio 22.6 H (8-20) Glucose 96 (70-100) mg/dL Calcium 9.7 (8.6-10.3) mg/dL Total Bilirubin 0.70 (0.2-1.0) mg/dL AST Pending ALT 11 (7-52) U/L Alkaline Phosphatase 22 L (34-104) U/L Total Protein 6.8 (6.4-8.9) g/dL Albumin 4.2 (3.2-5.2) g/dL Globulin 2.6 (2-4) g/dL Albumin/Globulin Ratio 1.6 (1-3) Lipase 13 (11.0-82.0) U/L Beta HCG, Quant Pending Result Diagrams: 03/15/17 08:50 03/15/17 11:30 Lab Statement: Any lab studies that have been ordered have been reviewed, and results considered in the medical decision making process. Re-Evaluation - Re-Evaluation First Eval Re-Evaluation Time: 10:00 Change: Improved Comment: heart burn resolved, feeling less nauseous Course/Dx - Course Course Of Treatment: 41F at 11 weeks LMP 01/01/17 presents with nausea and vomiting for 2 days. She has been seen in the ED multiple times for this compliant and the last time she was admitted. She is still taking the subtex. She stopped all of her psych meds including the lexapro. She states she can not hold anything down. She has a burning pain in her esophagus. She takes zofran every 8 hours, compazine every 6 hours, b6. She states only thing that works is zofran as it dissolved under the tongue. She denies any vaginal bleeding, cramping or discharge. She denies any dysuria. She denies any chest pain, SOB, cough, fever. on exam patient appears uncomforable. mild abdominal tenderness pelvic region. gave zofran, pepcid, and bednaryl and patient symptoms resolved. discussed with dr giles recommends against admission and can take zofran every 6 hours. labs Na 128 so gave 3 liters. [employer] (health insurance) will not cover zofran and tried to get prior auth but [employer] says never covers zofran. will send home as much zofran as can from ED which kwaku at [facility] [place] says only for 5 day supply. will send script for compazine suppository when zofran runs out told to take twice a day and stop other compazine. told to follow up with obgyn. patient understands and agrees with plan. - Differential Diagnosis/HQI/PQRI: Intrauterine , Hyperemesis Gravidarum , UTI - Diagnoses Provider Diagnoses: Hyperemesis gravidarum - Provider Notifications Discussed Care Of Patient With: dr giles Time Discussed With Above Provider: 11:17 - does not recommend admission Discharge - Discharge Plan Condition: Good Disposition: HOME Prescriptions: Prochlorperazine SUPP* [Compazine Supp*] 25 mg OR Q12H PRN #10 supp PRN Reason: Nausea Patient Education Materials: Hyperemesis Gravidarum (ED) Referrals: [facility] [place] PHYSICIAN REFERRAL [Outside] Quinton Giles MD [Medical Doctor] - Additional Instructions: Take zofran every 6 hours Use other nausea medication as prescribed When zofran runs out, can use compazine suppository every 12 hours Drink fluid as tolerated Follow up with obgyn Return to ED if develop any new or worsening symptoms
[2017-03-15] MEDS ORDERED: NS 0.9% 1000 ML* 1,000 ML IV ONE (11:22)
[2017-03-15] MEDS ORDERED: Metoclopramide IV* 5 MG/ML 2 ML VIAL IV ONE (11:24)
[2017-03-15 13:56] LABS: Urine Bacteria Absent (Absent); Urine Bilirubin Negative (Negative); Urine Glucose Negative (Negative); Urine Nitrite Negative (Negative)
[2017-03-15 13:58] VITALS: BP 109/69
== END 2017-03-15 14:09 | disposition home or self-care (01) ==
LOC: ED 08:07
DX: O21.0 Mild hyperemesis gravidarum (principal); Z3A.11 11 weeks gestation of pregnancy; Z37.9 Outcome of delivery, unspecified; O99.331 Smoking (tobacco) complicating pregnancy, first trimester; F17.210 Nicotine dependence, cigarettes, uncomplicated; O99.341 Other mental disorders complicating pregnancy, first trimester; F41.8 Other specified anxiety disorders
CPT/HCPCS: 36415; 80053; 81003; 81015; 83690; 84702; 85025; 96360; 96374; 96375; 99283; A9270-GY; J1200; J2405; J2765

== ENCOUNTER 2017-03-20 07:26 | Emergency (ER) | payer OTHER ==
[2017-03-20] MEDS ORDERED: Metoclopramide IV* 5 MG/ML 2 ML VIAL IV ONE (08:21)
[2017-03-20] MEDS: NS 0.9% 1000 ML* 2,000 ML IV ONE (08:42)
[2017-03-20] MEDS ORDERED: Al Hydrox/Mg Hydrox/Simet LIQ* 30 ML UDC PO ONE (08:50)
[2017-03-20] MEDS ORDERED: Al Hydrox/Mg Hydrox/Simet LIQ* 30 ML UDC ONE (08:50)
[2017-03-20 09:07] LABS: Hematocrit 34 % (35-47); Hemoglobin 11.9 g/dl (12.0-16.0); Mean Corpuscular HGB Conc 35 g/dl (31-36); Mean Corpuscular Hemoglobin 32 pg (27-31); Mean Corpuscular Volume 90 fL (80-97); Mean Platelet Volume 7 um3 (7.4-10.4); Red Blood Count 3.79 10^6/ul (4.0-5.4); Red Cell Distribution Width 14 % (10.5-15); White Blood Count 10.6 10^3/ul (3.5-10.8)
[2017-03-20 09:17] LABS: Urine Bilirubin Negative (Negative); Urine Glucose Negative (Negative); Urine Nitrite Negative (Negative)
[2017-03-20 09:24] LABS: Albumin 3.8 g/dL (3.2-5.2); BUN/Creatinine Ratio 13.5 (8-20); Calcium 9.2 mg/dL (8.6-10.3); EGFR African American 168.8 (>60); EGFR Non-African American 131.3 (>60); Globulin 2.3 g/dL (2-4); Potassium 3.7 mmol/L (3.5-5.0); Total Bilirubin 0.4 mg/dL (0.2-1.0); Total Protein 6.1 g/dL (6.4-8.9)
[2017-03-20] MEDS ORDERED: Ondansetron INJ* 2 MG/ML VIAL IV ONE (09:58)
[2017-03-20] MEDS ORDERED: Ondansetron ODT TAB* 4 MG PO ONE (11:06)
[2017-03-20 11:13] VITALS: BP 92/68
--- NOTE | 2017-03-20 11:36 | ED ---
Norris Olsen Angela, scribed for Valeriy Garcia MD on 03/20/17 at 0809 . Complex/Multi-Sys Presentation - HPI Summary HPI Summary: This pt is a 41 y/o female, currently 12 weeks , presenting to [facility] c/ o intermittent nausea and vomiting x1 month. Pt is unable to tolerate PO intake and feels dehydrated. She reports taking zofran and compazine. Pt denies diarrhea, chest pain, SOB. She notes coming to the ED many times before for the same complaint of nausea and vomiting. Pt has an upcoming appointment with her OBGYN, Dr. Samuels, on . Past surgery: in 1997. - History Of Current Complaint Chief Complaint: EDNauseaVomitDiarrh Time Seen by Provider: 03/20/17 07:38 Hx Obtained From: Patient Onset/Duration: Lasting Days Timing: Days Associated Signs And Symptoms: Positive: Nausea, Vomiting. Negative: Dizziness , Headache, SOB, Chest Pain, Abdominal Pain, Dysuria - Allergies/Home Medications Allergies/Adverse Reactions: Allergies Allergy/AdvReac Type Severity Reaction Status Date / Time No Known Allergies Allergy Verified 02/27/17 12:29 PMH/Surg Hx/FS Hx/Imm Hx Endocrine/Hematology History: Reports: Hx Anemia Denies: Hx Diabetes, Hx Systemic Lupus Erythematosus, Hx Thyroid Disease Cardiovascular History: Reports: Hx Syncope Denies: Hx Congestive Heart Failure, Hx Deep Vein Thrombosis, Hx Hypertension , Hx Myocardial Infarction, Hx Pacemaker/ICD Respiratory History: Reports: Hx Asthma, Hx Chronic Obstructive Pulmonary Disease (COPD) - possible Denies: Hx Lung Cancer, Hx Pneumonia, Hx Pulmonary Embolism GI History: Denies: Hx Gall Bladder Disease, Hx Gastroesophageal Reflux Disease, Hx Gastrointestinal Bleed, Hx Ulcer, Hx Urosepsis History: Reports: Hx Kidney Stones Denies: Hx Renal Disease Musculoskeletal History: Reports: Hx Back Problems, Hx Scoliosis Sensory History: Reports: Hx Contacts or Glasses, Hx Hearing Aid Comment Only: Hx Hearing Problem - 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, has hearing aid Opthamlomology History: Reports: Hx Contacts or Glasses Neurological History: Reports: Hx Headaches Denies: Hx Dementia, Hx Migraine, Hx Seizures, Hx Transient Ischemic Attacks (TIA), Other Neuro Impairments/Disorders Psychiatric History: Reports: Hx Anxiety, Hx Depression, Hx Panic Disorder, Hx Post Traumatic Stress Disorder, Hx Substance Abuse Denies: Hx Schizophrenia, Hx Bipolar Disorder, Hx Suicide Attempt, Hx of Violent Episodes Against Others - Cancer History Hx Chemotherapy: No - Surgical History Surgery Procedure, Year, and Place: C SECTION, LAPAROSCOPY FOR RUPTURED OVARIAN CYST Infectious Disease History: No Infectious Disease History: Reports: Hx Hepatitis - Hepatitis C (STATES TREATED) Denies: Hx Clostridium Difficile, Hx Human Immunodeficiency Virus (HIV), Hx of Known/Suspected MRSA, Hx Shingles, Hx Tuberculosis, Hx Known/Suspected VRE, Hx Known/Suspected VRSA, History Other Infectious Disease, Traveled Outside the [place] in Last 30 Days - Family History Known Family History: Positive: Other - Cancer Negative: Renal Disease, Blood Disorder - Social History Alcohol Use: Rare Alcohol Amount: rare during the past year Hx Substance Use: Yes - Pt on suboxone now Substance Use Type: Reports: Marijuana Substance Use Comment - Amount & 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6 F 81 16 98/61 99 03/20/17 07:30 03/20/17 07:30 03/20/17 07:30 03/20/17 07:30 03/20/17 07:30 Vital Signs Reviewed: Yes Appearance: Positive: Well-Appearing, No Pain Distress Skin: Positive: Skin Color Reflects Adequate Perfusion Head/Face: Positive: Normal Head/Face Inspection Eyes: Positive: EOMI ENT: Positive: Normal ENT inspection Neck: Positive: Supple, Nontender Respiratory/Lung Sounds: Positive: Clear to Auscultation, Breath Sounds Present Cardiovascular: Positive: RRR. Negative: Murmur Abdomen Description: Positive: Nontender Musculoskeletal: Positive: Strength/ROM Intact Neurological: Positive: Sensory/Motor Intact, Alert, Oriented to Person Place, Time, CN Intact II-III Psychiatric: Positive: Normal - [place] Coma Scale Coma Scale Total: 15 Diagnostics - Vital Signs Vital Signs Temp Pulse Resp BP Pulse Ox 03/20/17 07:49 70 98 03/20/17 07:45 98.9 F 71 14 100/60 99 03/20/17 07:30 98.6 F 81 16 98/61 99 - Laboratory Result Diagrams: 03/20/17 08:45 03/20/17 08:45 Lab Statement: Any lab studies that have been ordered have been reviewed, and results considered in the medical decision making process. Complex Multi-Symp Course/Dx Assessment/Plan: This pt is a 41 y/o female, currently 12 weeks , presenting to [facility] c/o intermittent nausea and vomiting x1 month. In the ED course, pt was given IV fluids, Reglan, and Maalox. UA shows 2+ ketones. - Diagnoses Provider Diagnoses: Hyperemesis - Physician Notifications Discussed Care Of Patient With: Kaylyn Samuels - Dw Dr Samuels, OB and she will see patient in follow up. recommends continu Time Discussed With Above Provider: 11:06 - continue zofran, and other meds. FU in office Discharge - Discharge Plan Condition: Good Disposition: HOME Patient Education Materials: Hyperemesis Gravidarum (ED) Referrals: No Primary Care Phys,NOPCP [Primary Care Provider] - Kaylyn Samuels MD [Medical Doctor] - The documentation as recorded by the Norris alcantara Angela accurately reflects the service I personally performed and the decisions made by , Valeriy Garcia MD.
== END 2017-03-20 11:27 | disposition home or self-care (01) ==
LOC: ED 07:26
DX: O21.9 Vomiting of pregnancy, unspecified (principal); Z3A.12 12 weeks gestation of pregnancy
CPT/HCPCS: 36415; 80053; 81003; 83605; 85025; 96360; 96374; 96375; A9270-GY; J2405; J2765

== ENCOUNTER 2017-04-05 17:16 | Emergency (ER) | payer OTHER ==
[2017-04-05] MEDS ORDERED: NS 0.9% 1000 ML* 2,000 ML IV ONE (20:25)
[2017-04-05] MEDS ORDERED: Ondansetron INJ* 2 MG/ML VIAL IV ONE ×3 (20:25→22:18)
[2017-04-05] MEDS ORDERED: Famotidine IV* 10 MG/ML 2 ML (20 mg) IV SLOW PU ONE (20:25)
[2017-04-05] MEDS ORDERED: Metoclopramide IV* 5 MG/ML 2 ML VIAL IV ONE (20:30)
[2017-04-05 21:59] LABS: Hematocrit 29 % (35-47); Mean Corpuscular HGB Conc 34 g/dl (31-36); Mean Corpuscular Hemoglobin 32 pg (27-31); Mean Corpuscular Volume 92 fL (80-97); Mean Platelet Volume 7 um3 (7.4-10.4); Red Blood Count 3.19 10^6/ul (4.0-5.4); Red Cell Distribution Width 14 % (10.5-15); White Blood Count 11.1 10^3/ul (3.5-10.8)
[2017-04-05 22:16] LABS: Albumin 3.3 g/dL (3.2-5.2); BUN/Creatinine Ratio 14.5 (8-20); C Reactive Protein 8.01 mg/L (< 5.00); Calcium 8.4 mg/dL (8.6-10.3); EGFR African American 158.2 (>60); Globulin 2.3 g/dL (2-4); Magnesium 1.8 mg/dL (1.9-2.7); Total Bilirubin 0.4 mg/dL (0.2-1.0); Total Protein 5.6 g/dL (6.4-8.9)
[2017-04-05] MEDS ORDERED: Magnesium Sulfate 2 GM IV* 2 GM/50 ML BAG IVPB ONE (22:18)
[2017-04-05] MEDS ORDERED: KCL 20 MEQ/100 ML IVPREMIX* 20 MEQ/100 ML BAG IV SCH (23:00)
[2017-04-05 23:37] LABS: Urine Bilirubin Negative (Negative); Urine Glucose Negative (Negative); Urine Nitrite Negative (Negative)
[2017-04-05] MEDS ORDERED: NS 0.9% 1000 ML* 1,000 ML IV ONE (23:44)
[2017-04-05] MEDS ORDERED: Lidocaine 2% VISCOUS* 15 ML UDC PO ONE (23:57)
[2017-04-05] MEDS ORDERED: Al Hydrox/Mg Hydrox/Simet LIQ* 30 ML UDC PO ONE (23:57)
[2017-04-06 01:23] VITALS: BP 110/72
[2017-04-06] MEDS ORDERED: Potassium Chlor TAB* 20 MEQ TAB.ER PO ONE (01:29)
--- NOTE | 2017-04-16 14:50 | ED ---
Julio Olsen Alfonso, scribed for Tania Robb MD on 04/05/17 at 8 . GI/ HPI - HPI Summary HPI Summary: This patient is a 41 year old F presenting to [facility] with a chief complaint of N /V since earlier today. She reports vomiting approximately every hour. The patient rates the pain 7/10 in severity. Symptoms aggravated by nothing. Symptoms alleviated by nothing. Patient reports fever, chills, and tooth ache ( recent dental work with tooth removal). Patient denies abdominal pain, diarrhea , and dysuria. The patient is 4 months . She reports A2, living alone, and marijuana use. - History of Current Complaint Chief Complaint: EDAbdPain Time Seen by Provider: 04/05/17 19:45 Stated Complaint: ABD PAIN/V/N Hx Obtained From: Patient Onset/Duration: Started Hours Ago, Still Present Timing: Intermittent - vomiting every hour Current Severity: Moderate Pain Intensity: 7 - /10 Associated Signs and Symptoms: Positive: Other: - Patient reports fever, chills , and tooth ache (recent dental work with tooth removal). Patient denies abdominal pain, diarrhea, and dysuria. Aggravating Factor(s): Nothing Alleviating Factor(s): Nothing - Additional Pertinent History Primary Care Physician: [id number] - Allergy/Home Medications Allergies/Adverse Reactions: Allergies Allergy/AdvReac Type Severity Reaction Status Date / Time No Known Allergies Allergy Verified 04/15/17 06:50 PMH/Surg Hx/FS Hx/Imm Hx Endocrine/Hematology History: Reports: Hx Anemia Denies: Hx Diabetes, Hx Systemic Lupus Erythematosus, Hx Thyroid Disease Cardiovascular History: Reports: Hx Syncope Denies: Hx Congestive Heart Failure, Hx Deep Vein Thrombosis, Hx Hypertension , Hx Myocardial Infarction, Hx Pacemaker/ICD Respiratory History: Reports: Hx Asthma, Hx Chronic Obstructive Pulmonary Disease (COPD) - possible Denies: Hx Lung Cancer, Hx Pneumonia, Hx Pulmonary Embolism GI History: Denies: Hx Gall Bladder Disease, Hx Gastroesophageal Reflux Disease, Hx Gastrointestinal Bleed, Hx Ulcer, Hx Urosepsis History: Reports: Hx Kidney Stones Denies: Hx Renal Disease Musculoskeletal History: Reports: Hx Back Problems, Hx Scoliosis Sensory History: Reports: Hx Contacts or Glasses, Hx Hearing Aid Comment Only: Hx Hearing Problem - 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, has hearing aid Opthamlomology History: Reports: Hx Contacts or Glasses Neurological History: Reports: Hx Headaches Denies: Hx Dementia, Hx Migraine, Hx Seizures, Hx Transient Ischemic Attacks (TIA), Other Neuro Impairments/Disorders Psychiatric History: Reports: Hx Anxiety, Hx Depression, Hx Panic Disorder, Hx Post Traumatic Stress Disorder, Hx Substance Abuse Denies: Hx Schizophrenia, Hx Bipolar Disorder, Hx Suicide Attempt, Hx of Violent Episodes Against Others - Cancer History Hx Chemotherapy: No - Surgical History Surgery Procedure, Year, and Place: C SECTION, LAPAROSCOPY FOR RUPTURED OVARIAN CYST Infectious Disease History: No Infectious Disease History: Reports: Hx Hepatitis - Hepatitis C (STATES TREATED) Denies: Hx Clostridium Difficile, Hx Human Immunodeficiency Virus (HIV), Hx of Known/Suspected MRSA, Hx Shingles, Hx Tuberculosis, Hx Known/Suspected VRE, Hx Known/Suspected VRSA, History Other Infectious Disease, Traveled Outside the [place] in Last 30 Days - Family History Known Family History: Positive: Other - Cancer Negative: Renal Disease, Blood Disorder - Social History Lives: Alone Alcohol Use: Rare Alcohol Amount: rare during the past year Hx Substance Use: Yes - Pt on suboxone now Substance Use Type: Reports: Marijuana Substance Use Comment - Amount & 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) Hx Tobacco Use: Yes Smoking Status (MU): Light Every Day Tobacco Smoker Type: Cigarettes Amount Used/How Often: 1/2 ppd Length of Time of Smoking/Using Tobacco: 15 years Have You Smoked in the Last Year: Yes Review of Systems Positive: Fever, Chills Positive: Dental Pain Positive: Vomiting, Nausea. Negative: Abdominal Pain, Diarrhea Negative: dysuria All Other Systems Reviewed And Are Negative: Yes Physical Exam - Summary Physical Exam Summary: General: Well appearing, no pain distress Skin: Warm, Skin Color Reflects Adequate Perfusion, Dry Eyes: EOMI, MAICOL ENT: Pharynx normal, TMs normal, Dry oral mucous membranes. Neck: Supple, nontender Respiratory: CTA, breath sounds present, no rhonchi, no wheezes, no rales Cardiovascular: RRR, no murmur, no rub, no gallop Abdomen: Soft, nontender, Non-distended, no guarding, no rebound. (feel uterus above umbilicus). Bowel: Present Musculoskeletal: JARAD, No edema Neuro: Sensory/motor intact, A&Ox3, CN intact 2-12 Psych: Moaning in discomfort Triage Information Reviewed: Yes Vital Signs On Initial Exam: Initial Vitals Temp Pulse Resp BP Pulse Ox 99.4 F 91 20 122/72 96 04/05/17 17:27 04/05/17 17:27 04/05/17 17:27 04/05/17 17:27 04/05/17 17:27 Vital Signs Reviewed: Yes - [place] Coma Scale Coma Scale Total: 15 Diagnostics - Vital Signs Vital Signs Temp Pulse Resp BP Pulse Ox 04/05/17 17:27 99.4 F 91 20 122/72 96 - Laboratory Lab Results: Lab Results 04/05/17 04/05/17 04/05/17 Range/Units 21:51 21:51 22:30 WBC 11.1 H (3.5-10.8) 10^3/ul RBC 3.19 L (4.0-5.4) 10^6/ul Hgb 10.0 L (12.0-16.0) g/dl Hct 29 L (35-47) % MCV 92 (80-97) fL MCH 32 H (27-31) pg MCHC 34 (31-36) g/dl RDW 14 (10.5-15) % Plt Count 203 (150-450) 10^3/ul MPV 7 L (7.4-10.4) um3 Neut % (Auto) 80.2 (38-83) % Lymph % (Auto) 11.3 L (25-47) % [place] % (Auto) 8.2 (1-9) % Eos % (Auto) 0.1 (0-6) % Baso % (Auto) 0.2 (0-2) % Absolute Neuts (auto) 8.9 H (1.5-7.7) 10^3/ul Absolute Lymphs (auto) 1.3 (1.0-4.8) 10^3/ul Absolute Monos (auto) 0.9 H (0-0.8) 10^3/ul Absolute Eos (auto) 0 (0-0.6) 10^3/ul Absolute Basos (auto) 0 (0-0.2) 10^3/ul Absolute Nucleated RBC 0 10^3/ul Nucleated RBC % 0 Sodium 131 L (133-145) mmol/L Potassium 3.0 L (3.5-5.0) mmol/L Chloride 100 L (101-111) mmol/L Carbon Dioxide 22 (22-32) mmol/L Anion Gap 9 (2-11) mmol/L BUN 8 (6-24) mg/dL Creatinine 0.55 (0.51-0.95) mg/dL Est GFR ( Amer) 158.2 (>60) Est GFR (Non-Af Amer) 123.0 (>60) BUN/Creatinine Ratio 14.5 (8-20) Glucose 93 (70-100) mg/dL Calcium 8.4 L (8.6-10.3) mg/dL Magnesium 1.8 L (1.9-2.7) mg/dL Total Bilirubin 0.40 (0.2-1.0) mg/dL AST 16 (13-39) U/L ALT 9 (7-52) U/L Alkaline Phosphatase 22 L (34-104) U/L C-Reactive Protein 8.01 H (< 5.00) mg/L Total Protein 5.6 L (6.4-8.9) g/dL Albumin 3.3 (3.2-5.2) g/dL Globulin 2.3 (2-4) g/dL Albumin/Globulin Ratio 1.4 (1-3) Lipase 22 (11.0-82.0) U/L Urine Color Yellow Urine Appearance Cloudy Urine pH 6.0 (5-9) Ur Specific [place] 1.008 L (1.010-1.030) Urine Protein Negative (Negative) Urine Ketones 2+ H (Negative) Urine Blood Negative (Negative) Urine Nitrate Negative (Negative) Urine Bilirubin Negative (Negative) Urine Urobilinogen Negative (Negative) Ur Leukocyte Esterase Negative (Negative) Urine Glucose Negative (Negative) Result Diagrams: 04/05/17 21:51 04/05/17 21:51 Lab Statement: Any lab studies that have been ordered have been reviewed, and results considered in the medical decision making process. GIGU Course/Dx - Course Course Of Treatment: long discussion with pt and her partner about plan, apparently per her partner she often ends up in the ED with intractable vomiting during this - Diagnoses Provider Diagnoses: Hyperemesis gravidarum Discharge - Discharge Plan Condition: Stable Disposition: HOME Patient Education Materials: Hyperemesis Gravidarum (ED) Referrals: [facility] [place] [facility] [Outside] - 3 Days Additional Instructions: RETURN TO THE EMERGENCY DEPARTMENT FOR CHANGING OR WORSENING SYMPTOMS. The documentation as recorded by the Julio alcantara Alfonso accurately reflects the service I personally performed and the decisions made by me, Tania Robb MD.
== END 2017-04-06 01:54 | disposition home or self-care (01) ==
LOC: ED 17:16
DX: O21.0 Mild hyperemesis gravidarum (principal); R50.9 Fever, unspecified; K08.89 Other specified disorders of teeth and supporting structures; Z3A.16 16 weeks gestation of pregnancy; F12.90 Cannabis use, unspecified, uncomplicated; F17.210 Nicotine dependence, cigarettes, uncomplicated
CPT/HCPCS: 36415; 80053; 81003; 83690; 83735; 85025; 86140; 96365; 96375; 96376; 99283; A9270-GY; J2405; J2765; J3475; J3480

== ENCOUNTER 2017-04-07 06:02 | Emergency (ER) | payer OTHER ==
[2017-04-07] MEDS ORDERED: Ondansetron INJ* 2 MG/ML VIAL IV ONE (06:11)
[2017-04-07] MEDS ORDERED: Al Hydrox/Mg Hydrox/Simet LIQ* 30 ML UDC PO ONE (07:11)
[2017-04-07] MEDS ORDERED: Lidocaine 2% VISCOUS* 15 ML UDC PO ONE (07:11)
[2017-04-07] MEDS ORDERED: Famotidine IV* 10 MG/ML 2 ML (20 mg) IV SLOW PU ONE (07:11)
[2017-04-07] MEDS: NS 0.9% 1000 ML* 2,000 ML IV ONE (07:15)
[2017-04-07 07:16] LABS: Hematocrit 30 % (35-47); Hemoglobin 10.6 g/dl (12.0-16.0); Mean Corpuscular HGB Conc 35 g/dl (31-36); Mean Corpuscular Hemoglobin 32 pg (27-31); Mean Corpuscular Volume 92 fL (80-97); Mean Platelet Volume 7 um3 (7.4-10.4); Red Blood Count 3.26 10^6/ul (4.0-5.4); Red Cell Distribution Width 14 % (10.5-15); White Blood Count 9.2 10^3/ul (3.5-10.8)
[2017-04-07 07:27] LABS: Albumin 3.5 g/dL (3.2-5.2); C Reactive Protein 2.64 mg/L (< 5.00); Calcium 8.5 mg/dL (8.6-10.3); EGFR African American 176.6 (>60); EGFR Non-African American 137.4 (>60); Globulin 2.3 g/dL (2-4); Magnesium 1.9 mg/dL (1.9-2.7); Potassium 3.7 mmol/L (3.5-5.0); Total Bilirubin 0.3 mg/dL (0.2-1.0); Total Protein 5.8 g/dL (6.4-8.9)
[2017-04-07 09:40] VITALS: BP 102/66
[2017-04-07 10:42] LABS: Urine Bilirubin Negative (Negative); Urine Glucose Negative (Negative); Urine Nitrite Negative (Negative)
--- NOTE | 2017-04-07 18:25 | ED ---
Norris Olsen Angela, scribed for Valeriy Shafer MD on 04/07/17 at 0735 . Complex/Multi-Sys Presentation - HPI Summary HPI Summary: This pt is a 41 y/o female, approximately 4 months , presenting to [facility] c/o nausea and vomiting today. Pt reports she has nausea and vomiting every time she tries to drink. She describes a burning sensation in her esophagus from the vomiting. Pt states she is usually given Pepcid and GI cocktail to relief her symptoms. She denies vaginal bleeding, discharge. Pt's ObGyn is Dr. Samuels. - History Of Current Complaint Chief Complaint: EDNauseaVomitDiarrh Time Seen by Provider: 04/07/17 07:25 Hx Obtained From: Patient Onset/Duration: Lasting Hours Timing: Hours Associated Signs And Symptoms: Positive: Nausea, Vomiting. Negative: Other - vaginal bleeding or discharge Related History: Similar Episode/Diagnosed As: - 2 days ago - Allergies/Home Medications Allergies/Adverse Reactions: Allergies Allergy/AdvReac Type Severity Reaction Status Date / Time No Known Allergies Allergy Verified 02/27/17 12:29 PMH/Surg Hx/FS Hx/Imm Hx Endocrine/Hematology History: Reports: Hx Anemia Denies: Hx Diabetes, Hx Systemic Lupus Erythematosus, Hx Thyroid Disease Cardiovascular History: Reports: Hx Syncope Denies: Hx Congestive Heart Failure, Hx Deep Vein Thrombosis, Hx Hypertension , Hx Myocardial Infarction, Hx Pacemaker/ICD Respiratory History: Reports: Hx Asthma, Hx Chronic Obstructive Pulmonary Disease (COPD) - possible Denies: Hx Lung Cancer, Hx Pneumonia, Hx Pulmonary Embolism GI History: Denies: Hx Gall Bladder Disease, Hx Gastroesophageal Reflux Disease, Hx Gastrointestinal Bleed, Hx Ulcer, Hx Urosepsis History: Reports: Hx Kidney Stones Denies: Hx Renal Disease Musculoskeletal History: Reports: Hx Back Problems, Hx Scoliosis Sensory History: Reports: Hx Contacts or Glasses, Hx Hearing Aid Comment Only: Hx Hearing Problem - 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, has hearing aid Opthamlomology History: Reports: Hx Contacts or Glasses Neurological History: Reports: Hx Headaches Denies: Hx Dementia, Hx Migraine, Hx Seizures, Hx Transient Ischemic Attacks (TIA), Other Neuro Impairments/Disorders Psychiatric History: Reports: Hx Anxiety, Hx Depression, Hx Panic Disorder, Hx Post Traumatic Stress Disorder, Hx Substance Abuse Denies: Hx Schizophrenia, Hx Bipolar Disorder, Hx Suicide Attempt, Hx of Violent Episodes Against Others - Cancer History Hx Chemotherapy: No - Surgical History Surgery Procedure, Year, and Place: C SECTION, LAPAROSCOPY FOR RUPTURED OVARIAN CYST Infectious Disease History: No Infectious Disease History: Reports: Hx Hepatitis - Hepatitis C (STATES TREATED) Denies: Hx Clostridium Difficile, Hx Human Immunodeficiency Virus (HIV), Hx of Known/Suspected MRSA, Hx Shingles, Hx Tuberculosis, Hx Known/Suspected VRE, Hx Known/Suspected VRSA, History Other Infectious Disease, Traveled Outside the [place] in Last 30 Days - Family History Known Family History: Positive: Other - Cancer Negative: Renal Disease, Blood Disorder - Social History Alcohol Use: Rare Alcohol Amount: rare during the past year Hx Substance Use: Yes - Pt on suboxone now Substance Use Type: Reports: Marijuana Substance Use Comment - Amount & 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 Negative: Abdominal Pain Negative: discharge - or vaginal bleeding Musculoskeletal: Negative Negative: Headache, Weakness, Paresthesia, Numbness All Other Systems Reviewed And Are Negative: Yes Physical Exam - Summary Physical Exam Summary: VITAL SIGNS: Reviewed. GENERAL: Patient is a well-developed and nourished female. Patient is not in any acute respiratory distress. HEAD AND FACE: No signs of trauma. No ecchymosis, hematomas or skull depressions. No sinus tenderness. EYES: PERRLA, EOMI x 2, No injected conjunctiva, no nystagmus. EARS: Hearing grossly intact. Ear canals and tympanic membranes are within normal limits. MOUTH: Oropharynx within normal limits. NECK: Supple, trachea is midline, no adenopathy, no JVD, no carotid bruit, no c- spine tenderness, neck with full ROM. CHEST: Symmetric, no tenderness at palpation LUNGS: Clear to auscultation bilaterally. No wheezing or crackles. CVS: Regular rate and rhythm, S1 and S2 present, no murmurs or gallops appreciated. ABDOMEN: Soft, non-tender. No signs of distention. No rebound no guarding, and no masses palpated. Bowel sounds are normal. EXTREMITIES: FROM in all major joints, no edema, no cyanosis or clubbing. NEURO: Alert and oriented x 3. No acute neurological deficits. Speech is normal and follows commands. SKIN: Dry and warm Triage Information Reviewed: Yes Vital Signs On Initial Exam: Initial Vitals Temp Pulse Resp BP Pulse Ox 99.6 F 84 22 111/82 97 04/07/17 06:08 04/07/17 06:08 04/07/17 06:08 04/07/17 06:08 04/07/17 06:08 Vital Signs Reviewed: Yes Diagnostics - Vital Signs Vital Signs Temp Pulse Resp BP Pulse Ox 04/07/17 06:08 99.6 F 84 22 111/82 97 - Laboratory Lab Results: Lab Results 04/07/17 04/07/17 Range/Units 06:35 06:35 WBC 9.2 (3.5-10.8) 10^3/ul RBC 3.26 L (4.0-5.4) 10^6/ul Hgb 10.6 L (12.0-16.0) g/dl Hct 30 L (35-47) % MCV 92 (80-97) fL MCH 32 H (27-31) pg MCHC 35 (31-36) g/dl RDW 14 (10.5-15) % Plt Count 205 (150-450) 10^3/ul MPV 7 L (7.4-10.4) um3 Neut % (Auto) 73.3 (38-83) % Lymph % (Auto) 16.2 L (25-47) % Wells % (Auto) 10.1 H (1-9) % Eos % (Auto) 0.2 (0-6) % Baso % (Auto) 0.2 (0-2) % Absolute Neuts (auto) 6.8 (1.5-7.7) 10^3/ul Absolute Lymphs (auto) 1.5 (1.0-4.8) 10^3/ul Absolute Monos (auto) 0.9 H (0-0.8) 10^3/ul Absolute Eos (auto) 0 (0-0.6) 10^3/ul Absolute Basos (auto) 0 (0-0.2) 10^3/ul Absolute Nucleated RBC 0.01 10^3/ul Nucleated RBC % 0.1 Sodium 130 L (133-145) mmol/L Potassium 3.7 (3.5-5.0) mmol/L Chloride 101 (101-111) mmol/L Carbon Dioxide 21 L (22-32) mmol/L Anion Gap 8 (2-11) mmol/L BUN 8 (6-24) mg/dL Creatinine 0.50 L (0.51-0.95) mg/dL Est GFR ( Amer) 176.6 (>60) Est GFR (Non-Af Amer) 137.4 (>60) BUN/Creatinine Ratio 16.0 (8-20) Glucose 103 H (70-100) mg/dL Calcium 8.5 L (8.6-10.3) mg/dL Magnesium 1.9 (1.9-2.7) mg/dL Total Bilirubin 0.30 (0.2-1.0) mg/dL AST 15 (13-39) U/L ALT 11 (7-52) U/L Alkaline Phosphatase 24 L (34-104) U/L C-Reactive Protein 2.64 (< 5.00) mg/L Total Protein 5.8 L (6.4-8.9) g/dL Albumin 3.5 (3.2-5.2) g/dL Globulin 2.3 (2-4) g/dL Albumin/Globulin Ratio 1.5 (1-3) Result Diagrams: 04/07/17 06:35 04/07/17 06:35 Lab Statement: Any lab studies that have been ordered have been reviewed, and results considered in the medical decision making process. Complex Multi-Symp Course/Dx Assessment/Plan: This pt is a 41 y/o female, approximately 4 months , presenting to [facility] c/o nausea and vomiting today. Pt reports she has nausea and vomiting every time she tries to drink. She describes a burning sensation in her esophagus from the vomiting. Pt states she is usually given Pepcid and GI cocktail to relief her symptoms. She denies vaginal bleeding, discharge. Pt's ObGyn is Dr. Samuels. Test results without any significant abnormalities except for slight chronic anemia, calcium of 8.5. Urinalysis is negative for a UTI. In the ED course, the pt was given IV fluids, Zofran for nausea and vomiting, and a GI cocktail. After these medications the symptoms resolved. The pt is tolerating PO without nausea and vomiting, and no pain. Patient denies any abdominal or pelvic cramping and she denies any vaginal discharge. The pt was observed for a couple of hours and her symptoms did not return. Therefore, she will be discharged home with follow up of her ObGyn doctor. Pt is hemodynamically stable, alert and oriented x3. - Diagnoses Provider Diagnoses: Nausea and vomiting Discharge - Discharge Plan Condition: Stable Disposition: HOME Patient Education Materials: Nausea and Vomiting in (ED) Referrals: Kaylyn Samuels MD [Medical Doctor] - Additional Instructions: Please follow up with your ObGyn, Dr. Samuels. The documentation as recorded by the Norris alcantara Angela accurately reflects the service I personally performed and the decisions made by , Valeriy Shafer MD.
== END 2017-04-07 09:49 | disposition home or self-care (01) ==
LOC: ED 06:02
DX: R11.2 Nausea with vomiting, unspecified (principal); F17.210 Nicotine dependence, cigarettes, uncomplicated
CPT/HCPCS: 36415; 80053; 81003; 83735; 85025; 86140; 99283; A9270-GY; J2405

== ENCOUNTER 2017-04-15 05:35 | Observation (INO) | payer OTHER ==
[2017-04-15] MEDS ORDERED: Ondansetron INJ* 2 MG/ML VIAL IV ONE ×2 (06:04→08:19)
[2017-04-15] MEDS ORDERED: Famotidine IV* 10 MG/ML 2 ML (20 mg) IV ONE (06:04)
[2017-04-15] MEDS: NS 0.9% 1000 ML* 2,000 ML IV ONE ×2 (06:36→06:37)
--- NOTE | 2017-04-15 06:47 | ED ---
Francine Olsen Rebecca, scribed for Xiomara Velizuel on 04/15/17 at 0613 . - HPI Summary HPI Summary: Pt is a 41 y/o F who is 4 months who presents to ED c/o N/V/D. Sx began yesterday morning at approximately 0600 and she has been experiencing episodes of vomiting every 10 minutes, per guest. Pt additionally c/o moderate epigastric abdominal pain with radiation to the lumbar back. Denies vaginal bleeding. Pt has been seen multiple times due to similar episodes of symptoms throughout he . [facility] December 31, 2016. A4. - History of Current Complaint Chief Complaint: EDNauseaVomitDiarrh Stated Complaint: VOMITING/BACK PAIN Time Seen by Provider: 04/15/17 05:47 Hx Obtained From: Patient Chief Complaint: Pain, Other: - N/V/D Onset/Duration: Started Days Ago - 1 day, Still Present Current Severity: Moderate Pain Intensity: 5 Location of Pain: Other: - Epigastric Aggravating Factors: Nothing Alleviating Factors: Nothing Associated Signs and Symptoms: Positive: Nausea - Assessment Hx Now: No Hx Hysterectomy: No - Additional Pertinent History Primary Care Physician: [id number] - Allergies/Home Medications Allergies/Adverse Reactions: Allergies Allergy/AdvReac Type Severity Reaction Status Date / Time No Known Allergies Allergy Verified 02/27/17 12:29 PMH/Surg Hx/FS Hx/Imm Hx Endocrine/Hematology History: Reports: Hx Anemia Denies: Hx Diabetes, Hx Systemic Lupus Erythematosus, Hx Thyroid Disease Cardiovascular History: Reports: Hx Syncope Denies: Hx Congestive Heart Failure, Hx Deep Vein Thrombosis, Hx Hypertension , Hx Myocardial Infarction, Hx Pacemaker/ICD Respiratory History: Reports: Hx Asthma, Hx Chronic Obstructive Pulmonary Disease (COPD) - possible Denies: Hx Lung Cancer, Hx Pneumonia, Hx Pulmonary Embolism GI History: Denies: Hx Gall Bladder Disease, Hx Gastroesophageal Reflux Disease, Hx Gastrointestinal Bleed, Hx Ulcer, Hx Urosepsis History: Reports: Hx Kidney Stones Denies: Hx Renal Disease Musculoskeletal History: Reports: Hx Back Problems, Hx Scoliosis Sensory History: Reports: Hx Contacts or Glasses, Hx Hearing Aid Comment Only: Hx Hearing Problem - 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, has hearing aid Opthamlomology History: Reports: Hx Contacts or Glasses Neurological History: Reports: Hx Headaches Denies: Hx Dementia, Hx Migraine, Hx Seizures, Hx Transient Ischemic Attacks (TIA), Other Neuro Impairments/Disorders Psychiatric History: Reports: Hx Anxiety, Hx Depression, Hx Panic Disorder, Hx Post Traumatic Stress Disorder, Hx Substance Abuse Denies: Hx Schizophrenia, Hx Bipolar Disorder, Hx Suicide Attempt, Hx of Violent Episodes Against Others - Cancer History Hx Chemotherapy: No - Surgical History Surgery Procedure, Year, and Place: C SECTION, LAPAROSCOPY FOR RUPTURED OVARIAN CYST Infectious Disease History: No Infectious Disease History: Reports: Hx Hepatitis - Hepatitis C (STATES TREATED) Denies: Hx Clostridium Difficile, Hx Human Immunodeficiency Virus (HIV), Hx of Known/Suspected MRSA, Hx Shingles, Hx Tuberculosis, Hx Known/Suspected VRE, Hx Known/Suspected VRSA, History Other Infectious Disease, Traveled Outside the [place] in Last 30 Days - Family History Known Family History: Positive: Other - Cancer Negative: Renal Disease, Blood Disorder - Social History Alcohol Use: Rare Alcohol Amount: rare during the past year Hx Substance Use: Yes - Pt on suboxone now Substance Use Type: Reports: Marijuana Substance Use Comment - Amount & 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) Hx Tobacco Use: Yes Smoking Status (MU): Light Every Day Tobacco Smoker Type: Cigarettes Amount Used/How Often: 1/2 ppd Length of Time of Smoking/Using Tobacco: 15 years Have You Smoked in the Last Year: Yes Review of Systems Positive: Abdominal Pain, Vomiting, Diarrhea, Nausea Positive: other - NEGATIVE: Vaginal bleeding All Other Systems Reviewed And Are Negative: Yes Physical Exam - Summary Physical Exam Summary: Appearance: Well appearing, no pain distress Skin: warm, dry, reflects adequate perfusion Head/face: normal Eyes: EOMI, MAICOL ENT: normal Neck: supple, nontender Respiratory: CTA, breath sounds present Cardiovascular: RRR, pulses symmetrical Abdomen: mild tenderness in the epigastric area, soft Bowel: present Musculoskeletal: normal, strength/ROM intact Neuro: normal, sensory motor intact, A& - Physical Exam Triage Information Reviewed: Yes Vital Signs Reviewed: Yes Diagnostics - Vital Signs Vital Signs Temp Pulse Resp BP Pulse Ox 04/15/17 05:40 98.5 F 69 18 132/85 98 - Laboratory Lab Statement: Any lab studies that have been ordered have been reviewed, and results considered in the medical decision making process. Course/Dx - Course Assessment/Plan: Pt is a 41 y/o F who is 4 months who presents to ED c/ o N/V/D. Sx began yesterday morning at approximately 0600 and she has been experiencing episodes of vomiting every 10 minutes, per guest. Pt additionally c /o moderate epigastric abdominal pain with radiation to the lumbar back. Denies vaginal bleeding. Pt has been seen multiple times due to similar episodes of symptoms throughout he . [address] December 31, 2016. A4. In the ED course, pt received fluids, zofran and Pepcid. Pt will be signed out to Dr. Patel, pending disposition, awaiting Pelvic US. Pt medications reviewed. Elevated BP noted. - Diagnoses Provider Diagnoses: Hyperemesis Discharge - Discharge Plan Condition: Stable Disposition: OTHER Discharge Disposition Comment: Pt will be signed out to Dr. Patel, pending dispo, awaiting Pelvic US The documentation as recorded by the Francine alcantara Rebecca accurately reflects the service I personally performed and the decisions made by , Aquiles Veliz.
[2017-04-15 07:00] LABS: Hematocrit 35 % (35-47); Hemoglobin 12.3 g/dl (12.0-16.0); Mean Corpuscular HGB Conc 35 g/dl (31-36); Mean Corpuscular Hemoglobin 32 pg (27-31); Mean Corpuscular Volume 92 fL (80-97); Mean Platelet Volume 8 um3 (7.4-10.4); Red Blood Count 3.83 10^6/ul (4.0-5.4); Red Cell Distribution Width 15 % (10.5-15)
[2017-04-15 07:11] LABS: ALT 15 U/L (7-52); Albumin 4.4 g/dL (3.2-5.2); Alkaline Phosphatase 32 U/L (34-104); Blood Urea Nitrogen 17 mg/dL (6-24); CO2 Carbon Dioxide 19 mmol/L (22-32); Calcium 9.6 mg/dL (8.6-10.3); Chloride 101 mmol/L (101-111); EGFR African American 112.4 (>60); EGFR Non-African American 87.4 (>60); Globulin 3.1 g/dL (2-4); Glucose 174 mg/dL (70-100); Lipase 15 U/L (11.0-82.0); Sodium 131 mmol/L (133-145); Total Protein 7.5 g/dL (6.4-8.9)
[2017-04-15] MEDS ORDERED: Al Hydrox/Mg Hydrox/Simet LIQ* 30 ML UDC PO ONE (07:32)
[2017-04-15] MEDS ORDERED: Lidocaine 2% VISCOUS* 15 ML UDC PO ONE (07:32)
[2017-04-15 08:04] LABS: Anion Gap 11 mmol/L (2-11)
[2017-04-15] MEDS ORDERED: Buprenorphine TAB* 2 MG TAB.SL SL ONE ×2 (08:07→13:16)
[2017-04-15] MEDS ORDERED: Ondansetron INJ* 2 MG/ML VIAL ONE (08:21)
[2017-04-15] MEDS ORDERED: PROCHLORPERAZINE INJ 5 MG/ML 2 ML VIAL IV ONE ×2 (09:16→12:19)
[2017-04-15] MEDS ORDERED: Metoclopramide IV* 5 MG/ML 2 ML VIAL IV SLOW PU ONE (09:18)
[2017-04-15 10:50] LABS: Urine Bacteria Absent (Absent); Urine Bilirubin Negative (Negative); Urine Glucose 3+(>=500 mg/dL) (Negative); Urine Nitrite Negative (Negative)
--- NOTE | 2017-04-15 13:25 | RAD ---
HISTORY: Vaginal bleeding and . The gestational age by previous ultrasound is: 14 weeks, 3 days COMPARISONS: February 27, 2017 TECHNIQUE: Multiple transverse and longitudinal ultrasound images were obtained of the gravid uterus using Grayscale, color Doppler, spectral Doppler, and M-mode Doppler imaging. FINDINGS: /PLACENTAL EVALUATION: Number of fetuses: Single Presentation: Cephalic cardiac activity: 147 bpm Gross motion: Observed Placenta position: Fundal Amniotic fluid volume: Normal QUINN: 10.9 cm BIOMETRY: Biparietal diameter: 2.75 cm 15 weeks, 0 days Head circumference: 10.49 cm 15 weeks, 0 days Abdominal circumference: 8.5 cm 14 weeks, 6 days Femur length: 1.5 cm 14 weeks, 5 days HC/AC: 1.24 Estimated weight: 103 grams, +/- 16 grams GESTATIONAL AGE: The composite gestational age is: 14 weeks, 6 days. The ROBERT is: October 08, 2017. This is concordant with the previous ultrasound examination. ANATOMY: An anatomic evaluation is not included on the current examination. The four-chamber cardiac views are limited and are not considered diagnostic. CERVIX: The cervix is long and closed, without funneling.. . OTHER: The subchorionic hemorrhage noted on the previous examination is not clearly visualized on the current examination. IMPRESSION: SINGLE LIVE INTRAUTERINE GESTATION AT 14 WEEKS, 6 DAYS BY COMPOSITE GESTATIONAL AGE
[2017-04-15] MEDS ORDERED: NS 0.9% 1000 ML* 1,000 ML IV SCH (13:45)
[2017-04-15] MEDS: NS 0.9% 1000 ML* 1,000 ML IV SCH (15:14)
[2017-04-15] MEDS: Pyridoxine TAB* 50 MG PO SCH ×3 (15:27→21:00)
[2017-04-15] MEDS: Ondansetron INJ* 2 MG/ML VIAL IV PRN ×2 (15:27→19:20)
--- NOTE | 2017-04-15 15:46 | HP ---
CC: Dr. Samuels; Dr. Rojo * [facility] MEDICINE HISTORY AND PHYSICAL: DATE OF ADMISSION: 04/15/17 PRIMARY CARE PHYSICIAN: Dr. Samuels. MENTAL HEALTH PROFESSIONAL: Dr. Rojo. ATTENDING PHYSICIAN: Dr. Amauri Ahuja * (dictation provided by Janae Cuevas NP ). CHIEF COMPLAINT: Nausea and vomiting. HISTORY OF PRESENT ILLNESS: Ms. Tati Cuevas is a 41-year-old female with a past medical history of hepatitis C; heroin abuse, currently on Subutex; tobacco abuse, who is 12 weeks' , who presents today to the hospital with concerns for nausea and vomiting. Ms. Cuevas was admitted to our hospital from 02/27/17 to 02/28/17 with concern for hyperemesis gravidarum, which responded well to antiemetics and resumption of her buprenorphine. The patient reports that she has been back in the emergency room on 03/15/17, 03/20/17, and 04/07/17 with similar report of nausea and vomiting. Per her and her significant other at the bedside, every time the patient runs out of her antiemetics, she immediately has resumption of symptoms. She does continue on Subutex and states that she had been taking it twice daily at 8 mg dosage as directed, but that while she has been nauseous and vomiting, she has not been able to tolerate that medication even though it is sublingual preparation. She reports some discomfort in the center of her chest and into her abdomen, which she associates with dry heaving. In the emergency room, the patient was given Reglan, Zofran, and Compazine, and despite this, she continued to have nausea and vomiting. She is now being given a dose of Subutex. A transvaginal ultrasound is pending. The patient's lab values in the emergency room showed white blood cell count of 17. Mild hyponatremia, the sodium 131 and glucose of 174. PAST MEDICAL HISTORY: 1. Hepatitis C. 2. Heroin abuse, on Subutex. 3. Hyperemesis gravidarum. 4. Tobacco abuse. MEDICATIONS: As outpatient are: 1. Albuterol 2 puffs inhaled q.4 hours p.r.n. 2. Subutex 8 mg p.o. b.i.d. 3. Zofran 4 mg p.o. q.6 hours p.r.n. 4. Compazine 25 mg per rectum q.12 hours p.r.n. 5. Compazine 10 mg p.o. q.6 hours orally p.r.n. 6. Vitamin B6 25 mg p.o. t.i.d. ALLERGIES: No known drug allergies. FAMILY HISTORY: The patient reports that there is no history of coronary artery disease or diabetes in the family. There is history of cancer, but she is unclear of the details. SOCIAL HISTORY: The patient is a former smoker, but has been smoking recently except for when she is not feeling well. She typically smokes about half a pack a day and has done so for the past 15 years. No report of current recreational drug use, although has a history of heroin abuse. Denies alcohol use. She states her mother, Janae Horne, will be be her surrogate decision maker. REVIEW OF SYSTEMS: A 14-point review of systems was completed with Ms. Cuevas and all those not mentioned above were negative. PHYSICAL EXAMINATION GENERAL: Ms. Cuevas is lying on the bed. She appears quite anxious, but in no acute distress. VITAL SIGNS: Temperature 99.3, pulse rate 76, respiratory rate 22, O2 saturation 99% on room air, blood pressure 114/58. LUNGS: Clear to auscultation bilaterally with no accessory muscle use and good aeration. HEART: S1 and S2. No murmur, rub, or gallop, and regular. ABDOMEN: Soft and nontender with bowel sounds positive x4. EXTREMITIES: No cyanosis or edema. NEURO: She is alert, she is oriented x3. She moves all extremities equally. There is no facial asymmetry or focal weakness. Extraocular movements are intact. SKIN: Intact. LABORATORY DATA: Sodium 131, potassium 3.5, chloride 101, serum bicarbonate 19 , BUN 17, creatinine 0.74, glucose 174. Beta hCG 72,294. WBC is 17.0, hemoglobin 12.3, hematocrit 35, and platelet count 351. Urine shows no evidence of infection. ASSESSMENT AND PLAN: Ms. Cuevas is a 41-year-old female with a past medical history of hepatitis C; heroin abuse, currently on Subutex, who is 12 weeks' and presents today to the hospital with persistent nausea and vomiting despite treatment in the emergency room with antiemetics. Our plans are for observation in the hospital for the followin. Nausea and vomiting: I suspect in part the problem is the patient has not been able to, per her report, tolerate her Subutex. She has had 2 mg now in the ED and I have added on additional 6 mg to resume her twice daily dose of 8 mg twice daily. Also, plan to continue antiemetics, which in the past have been successful for her. She will continue on IV fluids and we will resume her diet as tolerated. 2. 12 weeks' : The patient's transvaginal ultrasound today shows an intact intrauterine . She did report some vaginal bleeding. Plan to consult Dr. Giles today from [facility]. 3. Tobacco abuse. The patient encouraged on smoking cessation. 4. Code status is full code. 5. Disposition to medical floor. TIME SPENT: Approximately 60 minutes was spent in the admission of this patient , more than half time spent with the patient at the bedside reviewing the events leading up to this hospitalization, performing the physical examination, and reviewing the plan of care. JANAE CUEVAS NP [id number]/[facility] #: [id number] ESTEFANI
[2017-04-15] MEDS ORDERED: Buprenorphine TAB* 8 MG PO SCH (16:00)
--- NOTE | 2017-04-15 16:09 | PN ---
Progress Note - Progress Note Date of Service: 04/15/17 SOAP: Subjective: []41 yo with recurrent nausea and vommitting in . Unable to hold anything down for the last 3 days. Patient was unable to take all her doses of subutex due to vomiting . She says it does not dissolve quickly enough and gets vomited out. pt now with some diarrhea and abdomnal pain as well. Some bleeding occurred after admission. pt states multiple trips to ER due to vomiting and dehydration. Objective: []vss afebrile u/s today shows viable 14+ weeks . no evidence of subchorionic hemorrhage. normal appearance Assessment: []nausea and vomitting / dehydration/ viable / narcotic maintenance therapy with subutex Plan:May use zofran / compazine / reglan for time being to assist rehydration suspicious of subutex withdrawal based on symptoms and buprephenone levels may be helpful. pt got dose in ER and is back on schedule. discussed not trying to withdraw if this is going to be out come ( she discussed doing this at her 1 and only office visit) will call Dr Rojo on Monday as I am concerned about possible diversion as opposed to being unable to keep it down []
[2017-04-15] MEDS ORDERED: Acetaminophen TAB* 325 MG PO PRN (18:15)
[2017-04-15] MEDS: Al Hydrox/Mg Hydrox/Simet LIQ* 30 ML UDC PO PRN (21:00)
[2017-04-15] MEDS: PROCHLORPERAZINE INJ 5 MG/ML 2 ML VIAL IV PRN (21:00)
[2017-04-15] MEDS: Buprenorphine TAB* 8 MG PO SCH (21:00)
[2017-04-16] MEDS: Ondansetron INJ* 2 MG/ML VIAL IV PRN ×5 (00:04→21:06)
[2017-04-16] MEDS: NS 0.9% 1000 ML* 1,000 ML IV SCH ×2 (01:37→10:54)
[2017-04-16] MEDS: PROCHLORPERAZINE INJ 5 MG/ML 2 ML VIAL IV PRN ×2 (03:00→10:53)
[2017-04-16 05:58] LABS: Hematocrit 27 % (35-47); Hemoglobin 9.5 g/dl (12.0-16.0); Mean Corpuscular HGB Conc 35 g/dl (31-36); Mean Corpuscular Hemoglobin 32 pg (27-31); Mean Corpuscular Volume 93 fL (80-97); Mean Platelet Volume 7 um3 (7.4-10.4); Red Blood Count 2.94 10^6/ul (4.0-5.4); Red Cell Distribution Width 15 % (10.5-15); White Blood Count 12.2 10^3/ul (3.5-10.8)
[2017-04-16] MEDS: Al Hydrox/Mg Hydrox/Simet LIQ* 30 ML UDC PO PRN (06:00)
[2017-04-16] MEDS: Pyridoxine TAB* 50 MG PO SCH ×3 (09:02→21:14)
[2017-04-16] MEDS: Buprenorphine TAB* 8 MG PO SCH ×2 (09:03→21:16)
--- NOTE | 2017-04-16 10:57 | PN ---
Progress Note - Progress Note Date of Service: 04/16/17 Note: Pt doing a little better this am. no vomitting. no diarhea. no more pain. bleeding has stopped. Pt has appt on monday with us at office vss/ afebrile abdomen soft nontender 15 weeks / nausea/ dehydration improving
[2017-04-16] MEDS ORDERED: hydrOXYzine HCL TAB* 50 MG PO SCH (14:00)
[2017-04-16] MEDS: hydrOXYzine HCL TAB* 50 MG PO SCH ×3 (15:21→21:13)
--- NOTE | 2017-04-16 16:08 | PN ---
Subjective Date of Service: 04/16/17 Interval History: Patient states that her nausea is improved but that she is still vomiting up most of what she takes in. Patient states that her insurance does not cover zofran ODT and that they only have 4 subutex left due to vomiting when trying to take tablets sublingually and attempting to redose. Patient and fervently deny diverting. 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 Family History: Unchanged from Admission Social History: Unchanged from Admission Past Medical History: Unchanged from Admission Objective Active Medications: Acetaminophen (Tylenol Tab*) 650 mg PO Q6H PRN PRN Reason: PAIN Last Admin: 04/15/17 18:54 Dose: 650 mg Al Hydrox/Mg Hydrox/Simethicone (Maalox Plus*) 30 ml PO Q8H PRN PRN Reason: HEARTBURN Last Admin: 04/16/17 06:00 Dose: 30 ml Buprenorphine HCl (Subutex Tab*) 8 mg PO BID REPLACED BY [facility] Last Admin: 04/16/17 09:03 Dose: 8 mg Hydroxyzine HCl (Atarax Tab*) 50 mg PO QID REPLACED BY [facility] Last Admin: 04/16/17 15:21 Dose: 50 mg Sodium Chloride (Ns 0.9% 1000 Ml*) 1,000 mls @ 100 mls/hr IV PER RATE REPLACED BY [facility] Last Admin: 04/16/17 10:54 Dose: 100 mls/hr Sodium Chloride (Ns 0.9% 1000 Ml*) 1,000 mls @ 100 mls/hr IV PER RATE REPLACED BY [facility] Ondansetron HCl (Zofran Inj*) 4 mg IV Q4H PRN PRN Reason: NAUSEA Last Admin: 04/16/17 12:57 Dose: 4 mg Ondansetron HCl (Zofran Tab*) 4 mg PO Q6H REPLACED BY [facility] Prochlorperazine Edisylate (Compazine Inj*) 10 mg IV Q6H PRN PRN Reason: NAUSEA/VOMITING Last Admin: 04/16/17 10:53 Dose: 10 mg Pyridoxine HCl (Vitamin B6 Tab*) 25 mg PO TID REPLACED BY [facility] Last Admin: 04/16/17 15:20 Dose: 25 mg Vital Signs 04/15/17 04/15/17 04/15/17 16:42 19:50 20:00 Temperature 98.1 F Pulse Rate 66 Respiratory 16 16 18 Rate Blood Pressure 101/50 (mmHg) O2 Sat by Pulse 99 Oximetry 04/15/17 04/15/17 04/15/17 20:03 20:04 21:00 Temperature Pulse Rate Respiratory 18 18 16 Rate Blood Pressure (mmHg) O2 Sat by Pulse Oximetry 04/15/17 04/15/17 04/16/17 23:00 23:47 03:19 Temperature 98.0 F 97.9 F Pulse Rate 67 71 Respiratory 16 16 16 Rate Blood Pressure 104/47 129/54 (mmHg) O2 Sat by Pulse 96 98 Oximetry 04/16/17 04/16/17 04/16/17 07:20 08:00 09:03 Temperature 97.9 F Pulse Rate 72 Respiratory 23 24 24 Rate Blood Pressure 127/66 (mmHg) O2 Sat by Pulse 100 Oximetry 04/16/17 04/16/17 11:03 12:13 Temperature 97.8 F Pulse Rate 77 Respiratory 20 22 Rate Blood Pressure 112/53 (mmHg) O2 Sat by Pulse 98 Oximetry Oxygen Devices in Use Now: None Appearance: Patient is a 41yo female who appears stated age and is sitting in the exam bed in mild distress. Eyes: No Scleral Icterus, PERRLA Ears/Nose/Mouth/Throat: NL Teeth, Lips, Gums, Mucous Membranes Moist, - - Slight erythema of pharynx. Respiratory: Symmetrical Chest Expansion and Respiratory Effort, - - Slight wheezes in middle lobes of lungs that clear with repeated deep breathing. Cardiovascular: NL Sounds; No Murmurs; No JVD, RRR, No Edema Abdominal: No Hepatosplenomegaly, - - Normal sounds. Slight tenderness over epigastric area. No distension. Uterus palpable approximately 4cm below umbilicus. Lymphatic: No Cervical Adenopathy Extremities: No Edema Skin: No Rash or Ulcers Neurological: Alert and Oriented x 3 Result Diagrams: 04/16/17 05:34 04/15/17 08:46 Additional Lab and Data: 04/15/17 04/15/17 04/15/17 06:30 06:30 06:30 WBC 17.0 H RBC 3.83 L Hgb 12.3 Hct 35 MCV 92 MCH 32 H MCHC 35 RDW 15 Plt Count 351 MPV 8 Neut % (Auto) 91.6 H Lymph % (Auto) 5.1 L [place] % (Auto) 2.9 Eos % (Auto) 0.1 Baso % (Auto) 0.3 Absolute Neuts (auto) 15.6 H Absolute Lymphs (auto) 0.9 L Absolute Monos (auto) 0.5 Absolute Eos (auto) 0 Absolute Basos (auto) 0.1 Absolute Nucleated RBC 0 Nucleated RBC % 0 Sodium 131 L Potassium TNP Chloride 101 Carbon Dioxide 19 L Anion Gap 11 BUN 17 Creatinine 0.74 Est GFR ( Amer) 112.4 Est GFR (Non-Af Amer) 87.4 BUN/Creatinine Ratio 23.0 H Glucose 174 H Hemoglobin A1c 5.0 Calcium 9.6 Total Bilirubin 0.50 AST TNP ALT 15 Alkaline Phosphatase 32 L Total Protein 7.5 Albumin 4.4 Globulin 3.1 Albumin/Globulin Ratio 1.4 Lipase 15 Beta HCG, Quant 92345.00 Urine Color Urine Appearance Urine pH Ur Specific Dixon Urine Protein Urine Ketones Urine Blood Urine Nitrate Urine Bilirubin Urine Urobilinogen Ur Leukocyte Esterase Urine WBC (Auto) Urine RBC (Auto) Ur Squamous Epith Cells Amorphous Crystals Urine Bacteria Urine Glucose Urine Ascorbic Acid 04/15/17 04/15/17 04/16/17 08:15 08:46 05:34 WBC 12.2 H RBC 2.94 L Hgb 9.5 L Hct 27 L MCV 93 MCH 32 H MCHC 35 RDW 15 Plt Count 234 MPV 7 L Neut % (Auto) 70.8 Lymph % (Auto) 17.9 L [place] % (Auto) 10.8 H Eos % (Auto) 0.3 Baso % (Auto) 0.2 Absolute Neuts (auto) 8.7 H Absolute Lymphs (auto) 2.2 Absolute Monos (auto) 1.3 H Absolute Eos (auto) 0 Absolute Basos (auto) 0 Absolute Nucleated RBC 0 Nucleated RBC % 0 Sodium Potassium 3.5 Chloride Carbon Dioxide Anion Gap BUN Creatinine Est GFR ( Amer) Est GFR (Non-Af Amer) BUN/Creatinine Ratio Glucose Hemoglobin A1c Calcium Total Bilirubin AST 16 ALT Alkaline Phosphatase Total Protein Albumin Globulin Albumin/Globulin Ratio Lipase Beta HCG, Quant Urine Color Darcie Urine Appearance Turbid Urine pH 6.0 Ur Specific Dixon 1.022 Urine Protein 1+(30 mg/dl) H Urine Ketones 1+ H Urine Blood Negative Urine Nitrate Negative Urine Bilirubin Negative Urine Urobilinogen Negative Ur Leukocyte Esterase Negative Urine WBC (Auto) Absent Urine RBC (Auto) Absent Ur Squamous Epith Cells Present H Amorphous Crystals Present H Urine Bacteria Absent Urine Glucose 3+(>=500 mg/dl) H Urine Ascorbic Acid * H Assess/Plan/Problems-Billing Assessment: Patient is a 41yo female with a PMH significant for Heroin abuse currently treated with Subutex, Hep C and intractable vomiting during who has been seen for this similar complaint numerous times over the course of her with a previous admission who is slightly improved with anti-emetic medications but continues to vomit almost everything she takes in by mouth. - Patient Problems (1) Intractable vomiting with nausea Current Visit: Yes Status: Acute Code(s): R11.2 - NAUSEA WITH VOMITING, UNSPECIFIED SNOMED Code(s): 470762858 Comment: Patient improved slightly on zofran IV, Compazine PO and Pyrodoxine. Will trial scheduled zofran 4mg PO Q4hr to attempt to suppress nausea and allow for continued PO intake. Patient's insurance will not cover Zofran ODT, will attempt to get social work involved to overcome this obstacle if scheduled PO will not work. (2) Current Visit: Yes Status: Acute Comment: Appreciate OB input. OK'd treatment regimen with zofran scheduled. Patient has had no more vaginal bleeding. Patient has an OB appointment on Monday. (3) Mild heroin abuse in sustained remission on maintenance therapy Current Visit: Yes Status: Acute Code(s): F11.11 - OPIOID ABUSE, IN REMISSION SNOMED Code(s): 8726285 Comment: Patient maintained on Subutex 8mg SL BID. Based on symptoms, patient most likely withdrawing when she came to ED. No more diarrhea at this time and nausea reduced. Will continue on Subutex and Call Dr. Rojo in morning to attempt to find a solution to patient being short on doses. Bupronorphine level pending. Status and Disposition: Patient is admitted OBV. Will discharge when able to tolerate PO medications and oral fluids.
[2017-04-16] MEDS ORDERED: Ondansetron TAB* 4 MG PO SCH (17:00)
[2017-04-16] MEDS: Ondansetron TAB* 4 MG PO SCH ×2 (17:31→21:12)
[2017-04-17] MEDS: NS 0.9% 1000 ML* 1,000 ML IV SCH (00:07)
[2017-04-17] MEDS: Ondansetron INJ* 2 MG/ML VIAL IV PRN ×3 (00:59→08:13)
[2017-04-17] MEDS: Ondansetron TAB* 4 MG PO SCH ×4 (01:00→13:54)
[2017-04-17 06:21] LABS: Hematocrit 27 % (35-47); Hemoglobin 9.7 g/dl (12.0-16.0); Mean Corpuscular HGB Conc 35 g/dl (31-36); Mean Corpuscular Hemoglobin 33 pg (27-31); Mean Corpuscular Volume 92 fL (80-97); Mean Platelet Volume 8 um3 (7.4-10.4); Red Blood Count 2.97 10^6/ul (4.0-5.4); Red Cell Distribution Width 14 % (10.5-15); White Blood Count 10.3 10^3/ul (3.5-10.8)
[2017-04-17 06:38] LABS: BUN/Creatinine Ratio 16.3 (8-20); Calcium 8.1 mg/dL (8.6-10.3); EGFR African American 180.8 (>60); EGFR Non-African American 140.6 (>60); Potassium 3.8 mmol/L (3.5-5.0)
[2017-04-17] MEDS: Pyridoxine TAB* 50 MG PO SCH ×2 (08:13→13:10)
[2017-04-17] MEDS: Buprenorphine TAB* 8 MG PO SCH (08:13)
[2017-04-17] MEDS: hydrOXYzine HCL TAB* 50 MG PO SCH ×3 (08:14→16:35)
[2017-04-17] MEDS: Ondansetron ODT TAB* 4 MG SL SCH ×2 (13:13→16:35)
[2017-04-17 13:20] VITALS: BP 116/58
[2017-04-17] MEDS: Al Hydrox/Mg Hydrox/Simet LIQ* 30 ML UDC PO PRN (16:22)
[2017-04-17] MEDS ORDERED: Buprenorphine TAB* 8 MG PO ONE (17:00)
--- NOTE | 2017-04-18 11:28 | DS ---
DISCHARGE SUMMARY: DATE OF ADMISSION: 04/15/17 DATE OF DISCHARGE: 04/17/17 PRIMARY CARE PHYSICIAN: Fabián braun. CONSULTING PROVIDER: Dr. Quinton Giles, CLINICAL LAB ASSISTANT. CLINICAL LAB ASSISTANT: Dr. Kaylyn Samuels. MY ATTENDING WHILE IN THE HOSPITAL: Dr. Dot Arriola * (DICTATED BY PARAMJIT ATKINS) PRIMARY DISCHARGE DIAGNOSES: Intractable vomiting and . SECONDARY DIAGNOSES: 1. History of heroin abuse in remission, under treatment. 2. History of hepatitis C. 3. Tobacco abuse. STUDIES DONE WHILE IN THE HOSPITAL: ultrasound read as single live intrauterine gestation at 14 weeks 6 days by composite gestational age. MEDICATIONS AT DISCHARGE: 1. Albuterol inhaler 2 puffs q.4 hours as needed for wheezing. 2. Maalox 30 mL as needed for heartburn. 3. Subutex 8 mg p.o. b.i.d. as scheduled. 4. Zofran oral dissolving tablet 4 mg p.o. q.6 hours as needed for nausea. 5. Compazine 25 mg suppository q.12 hours as needed for nausea. 6. Compazine 10 mg p.o. tabs q.6 hours as needed for nausea. 7. Pyridoxine 25 mg p.o. b.i.d. 8. Doxylamine 25 mg p.o. b.i.d. HOSPITAL COURSE: This is a brief summary of the patient's presentation. For more details, please see the history and physical from Janae Cuevas NP, from 01/23. In brief, the patient is a 41-year-old female with past medical history significant for heroin use, currently on Subutex; hepatitis C; tobacco abuse; intractable vomiting, who is 12 weeks' and has been continuously vomiting to the point where she cannot take her oral dissolving Subutex and was believed to be withdrawing from opiates. The patient had diarrhea and chest discomfort radiating from her abdomen up to her throat consistent with GERD. The patient was admitted for control of her nausea and vomiting. The patient improved significantly overnight with IV Zofran, hydroxyzine was added as well as pyridoxine and the patient began to feel much better. The patient was rehydrated with IV fluids and began to be in less distress. The patient revealed that she had tried to dose her Subutex 4 times over the past few days and has vomited up the tablet before it completely dissolved under her tongue and had tried to re-dose, so she was 4 doses short on her Subutex. The patient is scheduled to crop picker a new Subutex prescription on at 10 a.m. The patient also stated that she had had trouble having her prescriptions filled due to her insurance from long prescriptions of the Zofran oral dissolving tablets. The patient also missed all but one of her scheduled CLINICAL LAB ASSISTANT appointments. CLINICAL LAB ASSISTANT stated that she was okay to have antiemetics to resolve her nausea and vomiting and wanted the buprenorphine level to tell if she had been diverting her Subutex. The patient continued to improve and was taking oral intake enough that her IV fluids were discontinued. The patient stated she would like to go home. It was calculated that if receiving her second dose of Subutex on 04/17/17, she could have sufficient dose at home to make it through at 10 a.m. when she could get her next dosage. The patient also stated that she would follow up with her CLINICAL LAB ASSISTANT the next day as scheduled. Zofran oral dissolving tablet prescription was sent to [facility] and they stated that they could fill it and said it would be covered by insurance. The patient had previously been to the emergency department approximately 10 times in the past since she had become before this and would always get a short- term supply of the Zofran oral dissolving tablets and then returns to the emergency department when she ran out according to the patient, 120-pill supply was sent to the department and the CLINICAL LAB ASSISTANT stated that they would be more than willing to fill her antiemetics from here on. The patient will be discharged to follow up with a primary care doctor when she establishes one. PHYSICAL EXAMINATION ON THE DAY OF DISCHARGE: General: The patient is a 41- year- old female, who appears stated age and sitting comfortably on the bed, in no acute distress. Vital Signs: At discharge, temperature 98.2, pulse rate 68 , respiratory rate 18, oxygen saturation 99%, blood pressure 116/58. HEENT: Head, normocephalic, atraumatic. Sclerae anicteric. No conjunctival injection. Mucous membranes moist. Pharynx nonerythematous. Neck: Supple. No lymphadenopathy. No carotid bruit auscultated. Cardiac: Regular rate and rhythm. No clicks, murmurs, gallops, or rubs. Pulses 2+ bilaterally in the radial, dorsalis pedis, and posterior tibialis areas. No edema. Respiratory: Clear to auscultation bilaterally. No wheezes, rales, or rhonchi. Abdomen: Nontender, nondistended. Bowel sounds present. Normoactive in all four quadrants. No hepatosplenomegaly. Uterine fundus palpable at approximately 2 cm below the umbilicus. : No suprapubic tenderness or CVA tenderness. Skin : Clean, dry, and intact. Neuro: Cranial nerves II through XII grossly intact. Gait: Normal. Psychiatric: The patient appears relatively anxious but is otherwise pleasant, cooperative. DISCHARGE PLAN: The patient will be discharged to follow up with Dr. Rojo and Dr. Smauels, CLINICAL LAB ASSISTANT. The patient will be discharged with 120 tabs' worth of prescription for her oral dissolving tablets, which will be available with 1 dollar co-pay. The patient will also have Compazine oral and AR as well as doxylamine and pyridoxine as well as home supply of Diclegis in order to prevent nausea. All these medications have been cleared by Dr. Giles of OB/ [facility] [employer] [employer] [facility] and he states that CLINICAL LAB ASSISTANT will continue to prescribe them and that he is unconcerned about the possibility of bowel abnormalities possibly associated with Zofran due to the possible negative effects on the mother and fetus from being unable to tolerate p.o. intake. The patient has 4 tabs of Subutex at home and should be able to make it through morning with her current supply, she will then follow up with Dr. Rojo and maintain a supply so she will not withdraw again. ACTIVITY: As tolerated for her gestational age. DIET: Soft and small meals with non-nauseating foods and drinks such as kristine litzy and saltines, which worked for her in the hospital. TIME SPENT: Approximately 60 minutes was spent on this discharge, half of which was spent [id number] with the patient obtaining history and physical and discussing treatment options. This is a brief summary of the hospital course, for more details please see the complete medical record. PARAMJIT ATKINS [id number]/[facility] #: [id number] ESTEFANI
--- NOTE | 2017-04-21 12:28 | PN ---
Nicolasa Oslen SooYoung, scribed for Dickson Patel MD on 04/15/17 at 0809 . Progress Note - Progress Note Date of Service: 04/15/17 Note: SO from Dr. Veliz at shift change to Dr. Patel awaiting U/S results. 0800: MD at bedside Pt is covered in multiple warm blankets, states being chilled. Pt is 41 y/o F who is 4 months presents with n/v for past month and diarrhea for past few days. Denies urinary sx. She has chronic lower back pain per baseline, takes 8mg BID Subutex, but hasn't had relief for 2-3 days due to the vomiting. OB-[employer] SPECIALIST is Dr. Samuels, last seen 3 weeks ago, is scheduled to see her in 3 days. Brief PE reveals mild suprapublic tenderness, no CVA tenderness. COT: Pt given Maalox, Subutex, Zofran in ED. UA results show 1+ protein, 1+ ketones, 3+ glucose, squamous epithelia present, ascorbic acid present, amorphorous crystals present. Upon D/C home, pt vomited again. Consulted with hospitalist and OB who agree with admitting pt. 1157: Consult with Dr. Ahuja, hospitalist Recommends getting opinion from OB 1203: Consult with Dr. Giles, OB Recommends meds, admission 1215: Consult with Dr. Ahuja, hospitalist Agrees to admit pt. DX: Gastroenteritis, hyperemesis gravidarum, opiate withdrawal. DISPO: Stable, Admit to [facility]. The documentation as recorded by the Nicolasa alcantara SooYoung accurately reflects the service I personally performed and the decisions made by me, Dickson Patel MD.
== END 2017-04-17 16:35 | disposition home or self-care (01) ==
LOC: ED 05:35 → MED 13:27
PROVIDERS: ADMIT Internal Medicine; ATTEND Internal Medicine
DX: O21.0 Mild hyperemesis gravidarum (principal); Z3A.12 12 weeks gestation of pregnancy; O09.521 Supervision of elderly multigravida, first trimester; O99.321 Drug use complicating pregnancy, first trimester; F11.21 Opioid dependence, in remission; O98.411 Viral hepatitis complicating pregnancy, first trimester; B19.20 Unspecified viral hepatitis C without hepatic coma; Z79.899 Other long term (current) drug therapy; F17.210 Nicotine dependence, cigarettes, uncomplicated
CPT/HCPCS: 36415; 76815; 80048; 80053; 80348; 81003; 81015; 83036; 83690; 84702; 85025; 96361; 96374; 96375; 96376; 99283; A9270-GY; G0378; G0480; J0780; J2405; J2765

== ENCOUNTER 2017-10-08 12:14 | Inpatient (IN) | payer OTHER ==
[2017-10-08 13:31] LABS: ABS Basophils 0.1 10^3/ul (0-0.2); ABS Eosinophils 0.1 10^3/ul (0-0.6); ABS Lymphocytes 1.9 10^3/ul (1.0-4.8); ABS Neutrophils 8.8 10^3/ul (1.5-7.7); ABS Nucleated RBC 0 10^3/ul; Eosinophil % 0.7 % (0-6); Hematocrit 34 % (35-47); Hemoglobin 11.7 g/dl (12.0-16.0); Lymphocyte % 15.9 % (25-47); Mean Corpuscular HGB Conc 34 g/dl (31-36); Mean Corpuscular Hemoglobin 33 pg (27-31); Mean Corpuscular Volume 98 fL (80-97); Nucleated Red Blood Cells % 0.1; Platelet Count 111 10^3/ul (150-450); Red Cell Distribution Width 14 % (10.5-15); White Blood Count 11.9 10^3/ul (3.5-10.8)
[2017-10-08] MEDS ORDERED: Lidocaine 1% MPF* 2 ML VIAL ONE (13:45)
[2017-10-08] MEDS ORDERED: Penicillin G Potassium IV* 5,000,000 UNITS in NS 0.9% 100 ML* 100 ML IVPB ONE (14:00)
[2017-10-08] MEDS ORDERED: Oxytocin in LR* 20 UNITS/1,000 ML BAG IVPB SCH (14:00)
--- NOTE | 2017-10-08 15:52 | PN ---
L&D Outpatient: Visit - Reproductive Information Estimated Due Date: 10/07/17 Gestational Age: 40 Weeks and 6 Days : 8 Para: 5 - Reason for Visit Visit Reason: 42 yo at 40 weeks a nd 1 day with srom at o830 with light meconium. gfm. no bloody show - Antepartal Records Antepartal Record: Reviewed, Complicated by: - / hsv/ histroy of stillbirth/ ama/ previous section - Patient History Patient History Significant: Yes Patient History Significant For: subutex use throughout L&D Outpatient: ROS - Review of Systems Constitutional: Comfortable - rom plus + CV Complaint: No Respiratory: Shortness of Breath: No Gastrointestinal: No Nausea/Vomiting Genitourinary: Leaking Fluid Musculoskeletal: No Complaint Movement: Normal none L&D Outpatient: Exam Vitals - Most Recent: vss afebrile Lab Values - Entire Visit: Laboratory Tests 10/08/17 10/08/17 10/08/17 12:30 13:20 13:40 WBC 11.9 H RBC 3.50 L Hgb 11.7 L Hct 34 L MCV 98 H MCH 33 H MCHC 34 RDW 14 Plt Count 111 L MPV 9.0 Neut % (Auto) 74.3 Lymph % (Auto) 15.9 L [place] % (Auto) 8.2 H Eos % (Auto) 0.7 Baso % (Auto) 0.9 Absolute Neuts (auto) 8.8 H Absolute Lymphs (auto) 1.9 Absolute Monos (auto) 1.0 H Absolute Eos (auto) 0.1 Absolute Basos (auto) 0.1 Absolute Nucleated RBC 0 Nucleated RBC % 0.1 Vag Amniotic Fld Detect Positive Blood Type A Positive Antibody Screen Negative - Cervical Exam Cervical Exam: 1 cm / vertex/ 50%/ -2 - Abdominal Exam Abdomen Exam: Non-Tender, Fundal Height Consistent with Dates - Membranes Membrane Status: SROM Hours Since SROM: 12 - Ultrasound/Biophysical Profile Ultrasound Status: Not Done L&D Outpatient: EFM - External Monitor Findings Baseline Heart Rate: 125 External Monitor Findings: Variability Moderate, Accelerations Absent L&D Outpatient: Asses/Plan Assessment: high risk gbs+ at 40 weeks with srom. discussed pitocin use at length with pt and partner. see green sheet - Discharge Diagnosis Discharge Diagnosis: Post Dates Plan: Admit as Inpatient
[2017-10-08] MEDS: Penicillin G Potassium IV* 2,500,000 UNITS in NS 0.9% 100 ML* 100 ML IVPB SCH ×2 (18:45→22:44)
[2017-10-08] MEDS: Buprenorphine TAB* 8 MG PO SCH (20:59)
[2017-10-08] MEDS: Acetaminophen TAB* 325 MG PO PRN (21:44)
[2017-10-09] MEDS ORDERED: Nicotine Inhaler* 10 MG AMP INH PRN (01:07)
[2017-10-09] MEDS ORDERED: Mouth Piece, Nicotine* 1 EACH CARTRIDGE INH ONE (01:07)
[2017-10-09] MEDS: Penicillin G Potassium IV* 2,500,000 UNITS in NS 0.9% 100 ML* 100 ML IVPB SCH ×4 (03:14→14:50)
[2017-10-09] MEDS ORDERED: Oxytocin in LR* 20 UNITS/1,000 ML BAG IVPB ONE (08:10)
[2017-10-09] MEDS: Acetaminophen TAB* 325 MG PO PRN (08:35)
[2017-10-09] MEDS: Buprenorphine TAB* 8 MG PO SCH ×2 (08:55→21:14)
[2017-10-09] MEDS ORDERED: Oxytocin in LR* 20 UNITS/1,000 ML BAG IVPB SCH ×2 (09:00→20:00)
[2017-10-09] MEDS ORDERED: OBEPIDURAL* 250 ML EPIDURAL ONE (13:42)
[2017-10-09] MEDS ORDERED: Phenylephrine IV* 40 MCG/ML 10 ML SYRINGE IV PUSH PRN ×2 (14:15)
[2017-10-09] MEDS ORDERED: Famotidine TAB* 20 MG PO PRN (14:15)
[2017-10-09] MEDS ORDERED: Sodium Citrate/Citric Acid* 15 ML UDC PO PRN (14:15)
[2017-10-09] MEDS ORDERED: OBEPIDURAL* 250 ML EPIDURAL SCH (15:00)
[2017-10-09] MEDS ORDERED: Lidocaine 1% MPF* 2 ML VIAL ONE (18:44)
[2017-10-09] MEDS ORDERED: Dibucaine 1% 28.35 GM TUBE PR PRN (19:47)
[2017-10-09] MEDS ORDERED: Witch Hazel PAD* JAR TOPICAL PRN (19:47)
[2017-10-09] MEDS ORDERED: Glycerin ADULT SUPP PR PRN (19:47)
[2017-10-09] MEDS: Ibuprofen TAB* 600 MG PO PRN (20:19)
[2017-10-09] MEDS ORDERED: Simethicone TAB* 80 MG TAB.CHEW PO SCH (21:00)
[2017-10-09] MEDS: Docusate CAP* 100 MG PO SCH (21:15)
[2017-10-10] MEDS: Acetaminophen TAB* 325 MG PO PRN (01:50)
[2017-10-10] MEDS: Ibuprofen TAB* 600 MG PO PRN ×2 (02:59→09:01)
[2017-10-10 06:33] LABS: ABS Basophils 0.2 10^3/ul (0-0.2); ABS Eosinophils 0.1 10^3/ul (0-0.6); ABS Lymphocytes 2.5 10^3/ul (1.0-4.8); ABS Monocytes 1.4 10^3/ul (0-0.8); ABS Neutrophils 14.1 10^3/ul (1.5-7.7); ABS Nucleated RBC 0 10^3/ul; Eosinophil % 0.6 % (0-6); Hematocrit 32 % (35-47); Lymphocyte % 13.9 % (25-47); Mean Corpuscular HGB Conc 35 g/dl (31-36); Mean Corpuscular Hemoglobin 33 pg (27-31); Mean Corpuscular Volume 96 fL (80-97); Mean Platelet Volume 7.1 um3 (7.4-10.4); Nucleated Red Blood Cells % 0; Platelet Count 196 10^3/ul (150-450); Red Blood Count 3.32 10^6/ul (4.0-5.4); Red Cell Distribution Width 14 % (10.5-15); White Blood Count 18.3 10^3/ul (3.5-10.8)
[2017-10-10] MEDS: Penicillin G Potassium IV* 2,500,000 UNITS in NS 0.9% 100 ML* 100 ML IVPB SCH (07:15)
[2017-10-10] MEDS: Ferrous Gluconate TAB* 324 MG TAB PO SCH ×2 (09:00→22:39)
[2017-10-10] MEDS: Buprenorphine TAB* 8 MG PO SCH ×2 (09:00→20:10)
[2017-10-10] MEDS: Docusate CAP* 100 MG PO SCH ×3 (09:01→20:10)
[2017-10-11] MEDS: Docusate CAP* 100 MG PO SCH ×2 (08:34→14:51)
[2017-10-11] MEDS: Ibuprofen TAB* 600 MG PO PRN ×2 (08:35→14:50)
[2017-10-11] MEDS: Buprenorphine TAB* 8 MG PO SCH (08:35)
[2017-10-11 10:17] VITALS: BP 104/60
[2017-10-11] MEDS: Acetaminophen TAB* 325 MG PO PRN (16:56)
== END 2017-10-11 17:51 | disposition home or self-care (01) | DRG 560 ==
LOC: MCHOBOUT 12:14 → MCHOB 13:10
PROVIDERS: ADMIT Obstetrics & Gynecology; ATTEND Obstetrics & Gynecology
PROC: 10E0XZZ Delivery of Products of Conception, External Approach (ICD-10-PCS; principal; 2017-10-09)
DX: O99.824 Streptococcus B carrier state complicating childbirth (principal); O98.42 Viral hepatitis complicating childbirth; O48.0 Post-term pregnancy; O34.211 Maternal care for low transverse scar from previous cesarean delivery; O42.02 Full-term premature rupture of membranes, onset of labor within 24 hours of rupture; O77.0 Labor and delivery complicated by meconium in amniotic fluid; F10.21 Alcohol dependence, in remission; F19.21 Other psychoactive substance dependence, in remission; Z3A.40 40 weeks gestation of pregnancy; Z37.0 Single live birth; B19.20 Unspecified viral hepatitis C without hepatic coma; O99.334 Smoking (tobacco) complicating childbirth; F17.200 Nicotine dependence, unspecified, uncomplicated
CPT/HCPCS: 36415; 80307; 84112; 85025; 86850; 86900; 86901; A9270-GY; J2540